=== PATIENT | male | born 1945 | race Caucasian/White ===

== ENCOUNTER → 2018-02-22 09:31 | Outpatient (CLI) | payer MEDICARE, OTHER, SELFPAY ==
--- NOTE | 2018-02-22 | DI.US.S_ITS ---
PROCEDURE: US ABDOMEN LIMITED INDICATIONS: POSSIBLE INGUINAL HERNIA TECHNIQUE: Real-time focused scanning was performed of the inguinal region, with image documentation. COMPARISON: None. FINDINGS: There is no sonographically visible mass, cyst or hernia in the right inguinal region. IMPRESSION: Negative right inguinal ultrasound Dictated by: Rajinder Hooker M.D. on 02/22/2018 at 10:00 Approved by: Rajinder Hooker M.D. on 02/22/2018 at 10:01
== END ==
PROVIDERS: PCP Internal Medicine; Visit Provider Urology
DX: K40.90 Unilateral inguinal hernia, without obstruction or gangrene, not specified as recurrent (principal)
CPT/HCPCS: 76705

== ENCOUNTER → 2018-03-06 10:43 | Outpatient (CLI) | payer MEDICARE, OTHER, SELFPAY ==
[2018-03-08 12:22] LABS: PSA Free % 26 % (calc) (> 25); PSA, Total 3.9 ng/mL (< 4.1)
== END ==
PROVIDERS: PCP Internal Medicine; Visit Provider Internal Medicine
DX: R97.20 Elevated prostate specific antigen [PSA] (principal)
CPT/HCPCS: 36415; 84153; 84154

== ENCOUNTER → 2018-05-02 14:42 | Outpatient (CLI) | payer MEDICARE, OTHER, SELFPAY ==
[2018-05-02 15:13] LABS: INR 1.5 (0.9-1.3); Prothrombin Time 16.8 SECONDS (10.1-12.7)
== END ==
PROVIDERS: PCP Internal Medicine; Visit Provider Internal Medicine Hematology
DX: R79.1 Abnormal coagulation profile (principal)
CPT/HCPCS: 36415; 85610

== ENCOUNTER → 2020-03-18 15:40 | Outpatient (ROUT) | payer MEDICARE, OTHER, SELFPAY ==
[2020-03-18 16:10] LABS: Aspartate Aminotransferase 29 IU/L (17-59); Blood Urea Nitrogen 21 mg/dL (9-20); Calcium 9.2 mg/dL (8.4-10.2); Carbon Dioxide 31 mmol/L (22-32); Chloride 106 mmol/L (98-107); Estimated Glomerular Filt Rate > 60.0 mL/min (>60); Glucose 204 mg/dL (80-110); HEMOLYSIS < 15 (0-50); Potassium 4.3 mmol/L (3.4-5.1); Sodium 142 mmol/L (137-145)
== END ==
PROVIDERS: PCP Internal Medicine; Visit Provider Internal Medicine
DX: I10 Essential (primary) hypertension (principal); E78.2 Mixed hyperlipidemia; N40.0 Benign prostatic hyperplasia without lower urinary tract symptoms
CPT/HCPCS: 80048; 84153; 84450

== ENCOUNTER → 2020-03-23 11:38 | Outpatient (CLI) | payer MEDICARE, OTHER, SELFPAY ==
[2020-03-23 12:45] LABS: Cholesterol 106 mg/dL (140-199); HDL Cholesterol 47 mg/dL (40-60); LDL Cholesterol Calculated 51 mg/dL (<100); Triglycerides 41 mg/dL (35-150)
== END ==
PROVIDERS: PCP Internal Medicine; Referring Provider Internal Medicine; Visit Provider Internal Medicine
DX: E78.2 Mixed hyperlipidemia (principal)
CPT/HCPCS: 36415; 80061

== ENCOUNTER → 2020-07-24 16:15 | Outpatient (CLI) | payer MEDICARE, OTHER, SELFPAY ==
[2020-07-24] MEDS: COVID-19 VACC #1, MRNA(MOD) 100 MCG/0.5 ML VIAL IM (16:23)
== END ==
PROVIDERS: PCP Internal Medicine; Visit Provider Internal Medicine
DX: Z23 Encounter for immunization (principal)
CPT/HCPCS: 0011A; 91301

== ENCOUNTER → 2020-08-21 16:06 | Outpatient (CLI) | payer MEDICARE, OTHER, SELFPAY ==
[2020-08-21] MEDS: COVID-19 VACC #2, MRNA(MOD) 100 MCG/0.5 ML VIAL IM (16:17)
== END ==
PROVIDERS: PCP Internal Medicine; Visit Provider Internal Medicine
DX: Z23 Encounter for immunization (principal)
CPT/HCPCS: 0012A; 91301

== ENCOUNTER → 2021-01-27 14:42 | Outpatient (CLI) | payer MEDICARE, OTHER, SELFPAY ==
[2021-01-27 15:24] LABS: Mean Corpuscular HGB Conc 33.3 % (30-36); Mean Corpuscular Hemoglobin 31.3 PG (26-34); Mean Corpuscular Volume 94.2 fL (80-100); Platelet Count 142 X10^3/uL (150-400); Red Blood Cell Count 4.78 X10^6/uL (4.5-5.9); Red Cell Distribution Width 12.7 % (11.6-14.8); White Blood Cell Count 7.4 X10^3/uL (4.5-11.0)
[2021-01-27 16:05] LABS: Alanine Aminotransferase 29 IU/L (<50); Albumin 3.9 g/dL (3.5-5.0); Albumin Globulin Ratio 1.3 (1.0-2.8); Alkaline Phosphatase 81 U/L (38-126); Aspartate Aminotransferase 33 IU/L (17-59); BUN Creatinine Ratio 24.6 (6-22); Bilirubin Total 0.6 mg/dL (0.2-1.3); Blood Urea Nitrogen 17 mg/dL (9-20); Calcium 9.2 mg/dL (8.4-10.2); Carbon Dioxide 25 mmol/L (22-32); Chloride 106 mmol/L (98-107); Estimated Glomerular Filt Rate > 60.0 mL/min (>60); Glucose 85 mg/dL (80-110); HEMOLYSIS < 15 (0-50); Sodium 139 mmol/L (137-145); Total Protein 6.9 g/dL (6.3-8.2)
[2021-01-27 16:45] LABS: TSH w/ Reflex to FT4 1.79 uIU/mL (0.47-4.68)
== END ==
PROVIDERS: PCP Internal Medicine; Referring Provider Internal Medicine; Visit Provider Internal Medicine
DX: R53.83 Other fatigue (principal)
CPT/HCPCS: 36415; 80053; 84443; 85027

== ENCOUNTER 2021-03-26 09:30 | Outpatient (RCR) | payer MEDICARE, OTHER, SELFPAY ==
[2021-03-26 09:45] VITALS: BP 152/60; BP 158/60; BP 162/78
--- NOTE | 2021-03-26 17:30 | PT.OIE ---
Current Diagnoses Benign paroxysmal vertigo, unspecified ear (03/26/21) Orthostatic hypotension (03/26/21) Dizziness and giddiness (03/26/21) Visit Care Team Role Provider Type Ganga Joseph MD Attending Provider Physician Family Provider Primary Care Provider Referring Provider Specialty: Internal Medicine Address: [address] [place] [address], [id number] Email: [email or web address] Therapy Initial Evaluation PT-OP-A Visit Information Start: 03/26/21 16:43 Freq: Status: Active Protocol: Document 03/26/21 09:45 DCW (Rec: 03/26/21 16:43 DCW [id number]) Out-Patient Physical Therapy Visit Information Visit Information Visit Type Initial Evaluation Visit Start Time 09:45 Visit Stop Time 10:20 Total Visit Minutes 35 Visit Number 1 Number of COUNTER TOP MAKER Visits 0 Evaluation Information Evaluation Date 03/26/21 PT-OP-B Current Condition Start: 03/26/21 16:43 Freq: Status: Active Protocol: Document 03/26/21 09:45 DCW (Rec: 03/26/21 17:22 DCW [id number]) Current Condition History of Current Condition Onset Date A few years Current Complaints Lightheadedness/Spinning upon standing History of Current Condition Pt was recently seen at a free public balance screening by this therapist. Pt did well with his balance, however had some reports of symptoms that sounded vertiginous in nature, and after discussion with therapist, pt became interesting in pursuing further diagnosis, and received a referral from his PCP. Pt reports in general, he has no problems when up walking, but gets dizzy when getting up at night, resulting in occasional retro fall back into bed. Pt admits he has difficulty in stairs and walking on naihd surfaces, however notes that there are no symptoms, it is more that he just does not feel comfortable. PT-OP-C Subjective Start: 03/26/21 16:43 Freq: Status: Active Protocol: Document 03/26/21 09:45 DCW (Rec: 03/26/21 17:22 DCW [id number]) OP-PT Subjective Patient Comments Patient Comments I keep an eye on my blood pressure, and it is normally pretty good, but I also just check it occasionally when sitting. Patient Questionnaires ABC- Activity Specific Balance Confidence Scale ABC Score 84.37% Dizziness Handicap Inventory DHI Score 18% PT-OP-H Neuro Start: 03/26/21 16:43 Freq: Status: Active Protocol: Document 03/26/21 09:45 DCW (Rec: 03/26/21 17:22 DCW [id number]) Vital Signs Blood Pressure Standing Blood Pressure (90/60-120/80 mmHg) 152/60 H Blood Pressure Source Manual Cuff,Right Upper Extremity Sitting Blood Pressure (90/60-120/80 mmHg) 158/60 H Blood Pressure Source Automatic Cuff,Manual Cuff, Right Upper Extremity Supine Blood Pressure (90/60-120/80 mmHg) 162/78 H Blood Pressure Source Manual Cuff,Right Upper Extremity PT-OP-O Vestibular Start: 03/26/21 16:43 Freq: Status: Active Protocol: Document 03/26/21 09:45 DCW (Rec: 03/26/21 17:22 DCW [id number]) Vestibular Assessment Screening Tests Vestibular Artery Screen Negative Auditory Tests Mcdaniels Test Within normal limits Rinne Test Negative Air Conduction Results Equal Visual Testing Smooth Pursuits Horizontal WNL - c/o uncomfortable Smooth Pursuits Vertical WNL Saccades Horizontal WNL Saccades Vertical WNL Gaze Evoked Nystagmus With Fixation Negative Gaze Evoked Nystagmus Without Fixation Negative Heave Test Positive Bilateral Thrust Head Positive Bilateral Positional Testing [place]-Hallpike Negative Left,Negative Right Rolling Test Negative Left,Negative Right PT-OP-T Assessment and Plan Start: 03/26/21 16:43 Freq: Status: Active Protocol: Document 03/26/21 09:45 DCW (Rec: 03/26/21 17:30 DCW [id number]) Physical Therapy Assessment Rehab Potential Rehabilitation Potential Fair Evaluation Complexity Number of Personal Factors/Comorbidities 1-2 Number of Body Systems Impaired 1-2 Clinical Presentation at Evaluation Stable Impairments Impairments Balance Assessment Summary Assessment Pt's vestibular examination is entirely negative at this time. Upon further discussion, pt's symptoms are really only present upon first standing, especially in the morning after lying in bed all night. Orthostatic BP measurements today did show a drop in diastolic blood pressure of 18 mmHg when moving from supine to sitting, which is larger than the typical 10 mmHg cutoff for diagnosis of Orthostatic Hypotension. Pt's BP was elevated today, and pt noted that his typical systolic reading is ~120-103. Noted he had some coffee before coming in today, and he does have a tendency to get white coat syndrome occasionally, so BP readings may be off compared to his usual. Pt reported he would like to keep a better eye on his BPs at home with his own automatic BP cuff, and, if there continues to be significant drops in BP, would like to discuss with his hospice volunteer at his upcoming appointment. Pt is unlikely to benefit from any further vestibular rehab at this time, as there was no indication of vestibular dysfunction. Pt will be discharged from skilled therapy, and will follow up with hospice volunteer as planned. Physical Therapy Plan Frequency and Duration Frequency of Treatment 1x/Week Duration of Treatment 1 day Plan of Care Start Date 03/26/21 Plan of Care End Date 03/27/21 Therapeutic Interventions Therapeutic Interventions Vestibular Rehabilitation Discharge Physical Therapy Discharge Reasons No Longer Attending PT Next Visit Focus/Plan Next Note Type Discharge Summary
--- NOTE | 2021-03-26 17:31 | PT.OPPOC ---
Physical, Occupational & Speech Therapy At [facility] Current Diagnoses Benign paroxysmal vertigo, unspecified ear (03/26/21) Orthostatic hypotension (03/26/21) Dizziness and giddiness (03/26/21) Visit Care Team Role Provider Type Ganga Joseph MD Attending Provider Physician Family Provider Primary Care Provider Referring Provider Specialty: Internal Medicine Address: [address] [place] [address], [facility] Email: [email or web address] Of Care PT-OP-T Assessment and Plan Start: 03/26/21 16:43 Freq: Status: Active Protocol: Document 03/26/21 09:45 DCW (Rec: 03/26/21 17:30 DCW [id number]) Physical Therapy Assessment Rehab Potential Rehabilitation Potential Fair Evaluation Complexity Number of Personal Factors/Comorbidities 1-2 Number of Body Systems Impaired 1-2 Clinical Presentation at Evaluation Stable Impairments Impairments Balance Assessment Summary Assessment Pt's vestibular examination is entirely negative at this time. Upon further discussion, pt's symptoms are really only present upon first standing, especially in the morning after lying in bed all night. Orthostatic BP measurements today did show a drop in diastolic blood pressure of 18 mmHg when moving from supine to sitting, which is larger than the typical 10 mmHg cutoff for diagnosis of Orthostatic Hypotension. Pt's BP was elevated today, and pt noted that his typical systolic reading is ~120-103. Noted he had some coffee before coming in today, and he does have a tendency to get white coat syndrome occasionally, so BP readings may be off compared to his usual. Pt reported he would like to keep a better eye on his BPs at home with his own automatic BP cuff, and, if there continues to be significant drops in BP, would like to discuss with his broadcast field supervisor at his upcoming appointment. Pt is unlikely to benefit from any further vestibular rehab at this time, as there was no indication of vestibular dysfunction. Pt will be discharged from skilled therapy, and will follow up with broadcast field supervisor as planned. Physical Therapy Plan Frequency and Duration Frequency of Treatment 1x/Week Duration of Treatment 1 day Plan of Care Start Date 03/26/21 Plan of Care End Date 03/27/21 Therapeutic Interventions Therapeutic Interventions Vestibular Rehabilitation Discharge Physical Therapy Discharge Reasons No Longer Attending PT Next Visit Focus/Plan Next Note Type Discharge Summary Plan of Care Dates Plan of Care Start Date 03/26/21 Plan of Care End Date 03/27/21 Electronically Signed by: Jose Puentes, PT 03/26/21 4543 Please Sign and Return: I have reviewed this Plan of Care and certify that the skilled therapy services above are required to meet the patient?s needs. Physician Signature Date Printed Name and Credentials Clinical Instructor Signature Printed Name and Credentials
--- NOTE | 2021-03-26 17:33 | PT.OPDS ---
Current Diagnoses Benign paroxysmal vertigo, unspecified ear (03/26/21) Orthostatic hypotension (03/26/21) Dizziness and giddiness (03/26/21) Visit Care Team Role Provider Type Ganga Joseph MD Attending Provider Physician Family Provider Primary Care Provider Referring Provider Specialty: Internal Medicine Address: [address] [place] [id number] Email: [email or web address] Visit Number Visit Number 1 Discharge Summary PT-OP-B Current Condition Start: 03/26/21 16:43 Freq: Status: Active Protocol: Document 03/26/21 09:45 DCW (Rec: 03/26/21 17:22 DCW [id number]) Current Condition History of Current Condition Onset Date A few years Current Complaints Lightheadedness/Spinning upon standing History of Current Condition Pt was recently seen at a free public balance screening by this therapist. Pt did well with his balance, however had some reports of symptoms that sounded vertiginous in nature, and after discussion with therapist, pt became interesting in pursuing further diagnosis, and received a referral from his PCP. Pt reports in general, he has no problems when up walking, but gets dizzy when getting up at night, resulting in occasional retro fall back into bed. Pt admits he has difficulty in stairs and walking on nahid surfaces, however notes that there are no symptoms, it is more that he just does not feel comfortable. PT-OP-C Subjective Start: 03/26/21 16:43 Freq: Status: Active Protocol: Document 03/26/21 09:45 DCW (Rec: 03/26/21 17:22 DCW [id number]) OP-PT Subjective Patient Comments Patient Comments I keep an eye on my blood pressure, and it is normally pretty good, but I also just check it occasionally when sitting. Patient Questionnaires ABC- Activity Specific Balance Confidence Scale ABC Score 84.37% Dizziness Handicap Inventory DHI Score 18% PT-OP-H Neuro Start: 03/26/21 16:43 Freq: Status: Active Protocol: Document 03/26/21 09:45 DCW (Rec: 03/26/21 17:22 DCW [id number]) Vital Signs Blood Pressure Standing Blood Pressure (90/60-120/80 mmHg) 152/60 H Blood Pressure Source Manual Cuff,Right Upper Extremity Sitting Blood Pressure (90/60-120/80 mmHg) 158/60 H Blood Pressure Source Automatic Cuff,Manual Cuff, Right Upper Extremity Supine Blood Pressure (90/60-120/80 mmHg) 162/78 H Blood Pressure Source Manual Cuff,Right Upper Extremity PT-OP-O Vestibular Start: 03/26/21 16:43 Freq: Status: Active Protocol: Document 03/26/21 09:45 DCW (Rec: 03/26/21 17:22 DCW [id number]) Vestibular Assessment Screening Tests Vestibular Artery Screen Negative Auditory Tests Mcdaniels Test Within normal limits Rinne Test Negative Air Conduction Results Equal Visual Testing Smooth Pursuits Horizontal WNL - c/o uncomfortable Smooth Pursuits Vertical WNL Saccades Horizontal WNL Saccades Vertical WNL Gaze Evoked Nystagmus With Fixation Negative Gaze Evoked Nystagmus Without Fixation Negative Heave Test Positive Bilateral Thrust Head Positive Bilateral Positional Testing [place]-Hallpike Negative Left,Negative Right Rolling Test Negative Left,Negative Right PT-OP-T Assessment and Plan Start: 03/26/21 16:43 Freq: Status: Active Protocol: Document 03/26/21 09:45 DCW (Rec: 03/26/21 17:30 DCW [id number]) Physical Therapy Assessment Rehab Potential Rehabilitation Potential Fair Evaluation Complexity Number of Personal Factors/Comorbidities 1-2 Number of Body Systems Impaired 1-2 Clinical Presentation at Evaluation Stable Impairments Impairments Balance Assessment Summary Assessment Pt's vestibular examination is entirely negative at this time. Upon further discussion, pt's symptoms are really only present upon first standing, especially in the morning after lying in bed all night. Orthostatic BP measurements today did show a drop in diastolic blood pressure of 18 mmHg when moving from supine to sitting, which is larger than the typical 10 mmHg cutoff for diagnosis of Orthostatic Hypotension. Pt's BP was elevated today, and pt noted that his typical systolic reading is ~120-103. Noted he had some coffee before coming in today, and he does have a tendency to get white coat syndrome occasionally, so BP readings may be off compared to his usual. Pt reported he would like to keep a better eye on his BPs at home with his own automatic BP cuff, and, if there continues to be significant drops in BP, would like to discuss with his container maker at his upcoming appointment. Pt is unlikely to benefit from any further vestibular rehab at this time, as there was no indication of vestibular dysfunction. Pt will be discharged from skilled therapy, and will follow up with container maker as planned. Physical Therapy Plan Frequency and Duration Frequency of Treatment 1x/Week Duration of Treatment 1 day Plan of Care Start Date 03/26/21 Plan of Care End Date 03/27/21 Therapeutic Interventions Therapeutic Interventions Vestibular Rehabilitation Discharge Physical Therapy Discharge Reasons No Longer Attending PT Next Visit Focus/Plan Next Note Type Discharge Summary
== END 2021-03-29 07:53 | disposition home or self-care (01) ==
LOC: PHYS 09:30
PROVIDERS: Family Provider Internal Medicine; PCP Internal Medicine; Referring Provider Internal Medicine; Visit Provider Internal Medicine
DX: H81.10 Benign paroxysmal vertigo, unspecified ear (principal); I95.1 Orthostatic hypotension
CPT/HCPCS: 97161

== ENCOUNTER → 2021-04-25 12:15 | Outpatient (CLI) | payer MEDICARE, OTHER, SELFPAY ==
--- NOTE | 2021-04-25 12:16 | DI.RAD.S_ITS ---
PROCEDURE: XR TIBIA FUBULA RT 2V INDICATIONS: pain with ambulation TECHNIQUE: 2 views of the tibia and fibula were acquired. COMPARISON: [facility], CR, XR FOOT RT MIN 3V, 04/25/2021, 12:12. FINDINGS: Bones: No fractures or dislocations. No suspicious bony lesions. The talar dome demonstrates no grey abnormality. Age-appropriate bony degenerative changes are seen. Soft tissues: No suspicious soft tissue calcifications or masses. Distal arterial calcification is noted. IMPRESSION: Unremarkable study for age, with degenerative changes noted. Dictated by: Shawn Baptiste M.D. on 04/25/2021 at 11:33 Approved by: Shawn Baptiste M.D. on 04/25/2021 at 11:33
--- NOTE | 2021-04-25 12:16 | DI.RAD.S_ITS ---
PROCEDURE: XR FOOT RT MIN 3V INDICATIONS: pain with ambulation TECHNIQUE: 3 views of the foot were acquired. COMPARISON: [facility], CR, XR TIBIA FIBULA RT 2V, 04/25/2021, 12:12. [facility], CR, FOOT 3V LEFT, 01/29/2015, 12:56. FINDINGS: Bones: No fractures or dislocations. No suspicious bony lesions. Generalized degenerative changes are seen, which are worst involving the 1st ray. There is focal moderate to severe degenerative change of the 1st metatarsophalangeal joint. 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 Soft tissues: No tibiotalar joint effusion. Achilles tendon appears normal. Distal arterial calcification can be seen. IMPRESSION: Generalized degenerative changes are seen, which are worst involving the 1st ray. Dictated by: Shawn Baptiste M.D. on 04/25/2021 at 11:31 Approved by: Shawn Baptiste M.D. on 04/25/2021 at 11:32
== END ==
PROVIDERS: Family Provider Internal Medicine; PCP Internal Medicine; Referring Provider Nurse Practitioner Family; Visit Provider Nurse Practitioner Family
DX: M79.671 Pain in right foot (principal); R26.2 Difficulty in walking, not elsewhere classified
CPT/HCPCS: 73590; 73630

== ENCOUNTER → 2021-05-18 13:05 | Outpatient (CLI) | payer MEDICARE, OTHER, SELFPAY ==
[2021-05-18 14:15] LABS: Blood Urea Nitrogen 17 mg/dL (9-20); Calcium 9.4 mg/dL (8.4-10.2); Carbon Dioxide 27 mmol/L (22-32); Chloride 104 mmol/L (98-107); Estimated Glomerular Filt Rate > 60.0 mL/min (>60); Glucose 117 mg/dL (80-110); HEMOLYSIS < 15 (0-50); Potassium 4.3 mmol/L (3.4-5.1); Sodium 140 mmol/L (137-145)
== END ==
PROVIDERS: Family Provider Internal Medicine; PCP Internal Medicine; Referring Provider Internal Medicine Cardiovascular Disease; Visit Provider Internal Medicine Cardiovascular Disease
DX: I10 Essential (primary) hypertension (principal)
CPT/HCPCS: 36415; 80048

== ENCOUNTER → 2021-11-03 08:12 | Outpatient (CLI) | payer MEDICARE, OTHER, SELFPAY ==
[2021-11-03 09:16] LABS: Hemoglobin A1C% w Est Avg Glu 6.7 % (4.0-6.0)
[2021-11-03 09:58] LABS: Alanine Aminotransferase 28 IU/L (<50); Albumin 4.1 g/dL (3.5-5.0); Albumin Globulin Ratio 1.6 (1.0-2.8); Alkaline Phosphatase 72 U/L (38-126); Aspartate Aminotransferase 29 IU/L (17-59); BUN Creatinine Ratio 18.6 (6-22); Bilirubin Total 1.1 mg/dL (0.2-1.3); Blood Urea Nitrogen 16 mg/dL (9-20); Calcium 9.2 mg/dL (8.4-10.2); Carbon Dioxide 28 mmol/L (22-32); Chloride 106 mmol/L (98-107); Cholesterol 118 mg/dL (140-199); Estimated Glomerular Filt Rate > 60 mL/min (>60); Globulin 2.6 g/dL (1.7-4.1); Glucose 130 mg/dL (80-110); HDL Cholesterol 47 mg/dL (40-60); HEMOLYSIS < 15 (0-50); LDL Cholesterol Calculated 52 mg/dL (<100); Potassium 4.2 mmol/L (3.4-5.1); Sodium 142 mmol/L (137-145); Total Protein 6.7 g/dL (6.3-8.2); Triglycerides 93 mg/dL (35-150)
== END ==
PROVIDERS: Family Provider Internal Medicine; PCP Internal Medicine; Referring Provider Internal Medicine; Visit Provider Internal Medicine
DX: E11.9 Type 2 diabetes mellitus without complications (principal); E78.2 Mixed hyperlipidemia; I10 Essential (primary) hypertension; I25.10 Atherosclerotic heart disease of native coronary artery without angina pectoris
CPT/HCPCS: 36415; 80053; 80061; 83036

== ENCOUNTER 2022-03-03 13:45 | Outpatient (RCR) | payer MEDICARE, OTHER, SELFPAY ==
--- NOTE | 2022-01-25 21:56 | PT.OIE ---
Current Diagnoses Low back pain, unspecified (01/25/22) Left lower quadrant pain (01/25/22) Past Medical History (Last Updated 01/20/22 @ 13:34 by Juanita Crandall PA-C) Acne Acute lumbar back pain BPH w urinary obs/LUTS Chronic back pain Colon polyps Coronary artery disease Depression Diabetes mellitus Factor V Leiden Fractures GERD (gastroesophageal reflux disease) Hearing loss Hemorrhoid Hypertension Left groin pain Migraines Mixed hyperlipidemia Psoriasis PTSD (post-traumatic stress disorder) Vision disorder Past Surgical History (Last Updated 06/20/21 @ 22:13 by Perla Parks) Anesthesia History of hernia repair (~2019) History of surgery (~2012) History of thyroplasty (~2013) Varicocele (~1970) Visit Care Team Role Provider Type Juanita Crandall PA-C Referring Provider Physician 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 Specialty: EM Address: [address] [place] [address] Email: Teo Ayon MD Attending Provider Physician Family Provider Primary Care Provider Specialty: Internal Medicine Address: [address] [place] [address], [address], [place], [address] Email: [email or web address] Physical Therapy Initial Evaluation PT-OP-A Visit Information Start: 01/25/22 07:36 Freq: Status: Active Protocol: Document 01/25/22 08:16 AMB (Rec: 01/25/22 09:05 AMB [id number]) Out-Patient Physical Therapy Visit Information Visit Information Visit Type Initial Evaluation Visit Start Time 08:15 Visit Stop Time 09:00 Total Visit Minutes 45 Visit Number 1 PT-OP-B Current Condition Start: 01/25/22 07:36 Freq: Status: Active Protocol: Document 01/25/22 08:16 AMB (Rec: 01/25/22 09:05 AMB [id number]) Current Condition History of Current Condition Onset Date About a month ago Current Complaints L low back pain History of Current Condition Back issues for decades, but acute pain started a month ago, no specific incident, but wondering if yardwork caused it. Was having L groin pain that is better now. Does have a history of bilateral hernia surgery. Doing yardwork, but has given that up at this point. Sudden braking in the car hurts the back, rolling over in bed, moving from sit to stand. Walking is not as painful. In his 40s was diagnosed with DDD and was running 35 miles throughout the week. Previous to recent injury was able to stand 10-15 minutes without back pain, now micha to stand 2-3 minutes. Treatment Goals Patient/Caregiver Goals Reduce pain, be able to return to yardwork on uneven yard Personal Factors Other Personal Factors That May Effect DMII, HTN, depression Therapy/Recovery PT-OP-C Subjective Start: 01/25/22 07:36 Freq: Status: Active Protocol: Document 01/25/22 08:15 AMB (Rec: 01/25/22 16:14 AMB [id number]) Patient Questionnaires Oswestry Low Back Index Oswestry Score 46 Oswestry Impairment 40 to 59% Impaired (Score 40- 59) OP-PT Pain Assessment Comments Pain Comments 6/10 left low back pain, previously left groinsharp PT-OP-F Manual Assessment Start: 01/25/22 07:36 Freq: Status: Active Protocol: Document 01/25/22 08:15 AMB (Rec: 01/27/22 21:39 AMB [id number]-) Manual Assessments Soft Tissue Assessment Soft Tissue Mobility Assessment Tightness at left QL> R . T Joint Mobility Assessment Joint Mobility Assessment Stiffness with PAs especially L4L5 PT-OP-G Mobility & Gait Start: 01/25/22 07:36 Freq: Status: Active Protocol: Document 01/25/22 08:15 AMB (Rec: 01/27/22 21:39 AMB [id number]-) OP Gait Assessment Comments Gait Comments Reduced trunk rotation, flat lumbar spine PT-OP-K Range of Motion Start: 01/25/22 07:36 Freq: Status: Active Protocol: Document 01/25/22 08:15 AMB (Rec: 01/25/22 16:18 AMB [id number]) Lumbar Spine Range of Motion Lumbar Spine Active Degrees Testing Position Standing Flexion 40 Extension 10 Lateral Flexion Left 10 Lateral Flexion Right 10 ROM Limitations Pain PT-OP-L Special Tests Start: 01/25/22 07:36 Freq: Status: Active Protocol: Document 01/25/22 08:15 AMB (Rec: 07/28/22 21:39 AMB [id number]) Special Tests Lumbar Spine Special Tests Slump Test Results - PT-OP-M Strength Start: 01/25/22 07:36 Freq: Status: Active Protocol: Document 01/25/22 08:15 AMB (Rec: 01/27/22 21:39 AMB [id number]) Hip Strength Hip Manual Muscle Testing Right Flexion (L2) 4+ Good+ Extension (S1) 4 Good Abduction 4 Good Left Flexion (L2) 4- Good- Extension (S1) 4 Good Abduction 4 Good PT-OP-Q Treatments Start: 01/25/22 07:36 Freq: Status: Active Protocol: Document 01/25/22 08:15 AMB (Rec: 01/25/22 16:20 AMB [id number]) Therapeutic Exercises Supine Exercises bridge Reps/Minutes 2x10 Comments cued slow movement Prone Exercises pronepress up Comments increased pain Sitting Exercises seated lumbar flexion Reps/Minutes 30x2 Other Exercises brad pose Reps/Minutes 30x2 Comments wiht sidebend PT-OP-T Assessment and Plan Start: 01/25/22 07:36 Freq: Status: Active Protocol: Document 01/25/22 08:15 AMB (Rec: 01/27/22 21:56 AMB [id number]) Physical Therapy Assessment Rehab Potential Rehabilitation Potential Good Evaluation Complexity Number of Personal Factors/Comorbidities 1-2 Number of Body Systems Impaired 4 or More Clinical Presentation at Evaluation Stable Impairments Impairments Functional Activities,Pain, Posture,ROM,Strength Goals Positional tolerance [facility] Goal (LTG) Dylan will stand for 10 minutes without an increase in his baseline pain. LTG Duration 8 weeks Two Impairment Transfers Short Term Goal (STG) Dylan will perform all bed mobility without an increase in back pain. STG Duration 4 weeks Account Retention Representative Goal (LTG) Dylan will move from sit to stand without back pain. LTG Duration 8 weeks One Impairment ROM Short Term Goal (STG) Dylan will increase his lumbar extension range to at least 15 degrees without pain. STG Duration 4 weeks Assessment Summary Assessment Dylan attends physical therapy with an acute exacerbation of chronic back pain, worst with transfers ( bed mobility, sit to stand, and especially extended standing). Extension increased his pain while flexion was mildly relieving. He also notes L groin pain but this was not reproduced with palpation today, he thinks this could be separate as it has been improving while the back has not really been doing so. He will benefit from PT to improve his range of motion, strength, and body mechanics so that he can stand and move with less back pain. Physical Therapy Plan Frequency and Duration Frequency of Treatment 2x/Week Duration of Treatment 8 weeks Plan of Care Start Date 01/25/22 Plan of Care End Date 04/05/22 Therapeutic Interventions Therapeutic Interventions Gait Training,Home Exercise Program,Manual Therapy,Self- Care/Home Management, Therapeutic Activities, Therapeutic Exercises Modalities Cold Pack/Ice Massage,Electric Stimulation,Hot Packs Next Visit Focus/Plan Next Note Type Treatment Note Next Visit Plan Core stabilization with flexion bias, review HEP:
--- NOTE | 2022-01-25 21:57 | PT.OPPOC ---
Physical, Occupational & Speech Therapy At [facility] Current Diagnoses Low back pain, unspecified (01/25/22) Left lower quadrant pain (01/25/22) Visit Care Team Role Provider Type Juanita Crandall PA-C Referring Provider Physician Medical Billing Associate Specialty: EM Address: [address] [place] [address], [id number] Email: Teo Ayon MD Attending Provider Physician Family Provider Primary Care Provider Specialty: Internal Medicine Address: [address] [place] [address], [address], [place], [address] Email: [email or web address] Plan Of Care PT-OP-T Assessment and Plan Start: 01/25/22 07:36 Freq: Status: Active Protocol: Document 01/25/22 08:15 AMB (Rec: 01/27/22 21:56 AMB [id number]) Physical Therapy Assessment Rehab Potential Rehabilitation Potential Good Evaluation Complexity Number of Personal Factors/Comorbidities 1-2 Number of Body Systems Impaired 4 or More Clinical Presentation at Evaluation Stable Impairments Impairments Functional Activities,Pain, Posture,ROM,Strength Goals Positional tolerance Cotton Presser Goal (LTG) Dylan will stand for 10 minutes without an increase in his baseline pain. LTG Duration 8 weeks Two Impairment Transfers Short Term Goal (STG) Dylan will perform all bed mobility without an increase in back pain. STG Duration 4 weeks Prison Goal (LTG) Dylan will move from sit to stand without back pain. LTG Duration 8 weeks One Impairment ROM Short Term Goal (STG) Dylan will increase his lumbar extension range to at least 15 degrees without pain. STG Duration 4 weeks Assessment Summary Assessment Dylan attends physical therapy with an acute exacerbation of chronic back pain, worst with transfers ( bed mobility, sit to stand, and especially extended standing). Extension increased his pain while flexion was mildly relieving. He also notes L groin pain but this was not reproduced with palpation today, he thinks this could be separate as it has been improving while the back has not really been doing so. He will benefit from PT to improve his range of motion, strength, and body mechanics so that he can stand and move with less back pain. Physical Therapy Plan Frequency and Duration Frequency of Treatment 2x/Week Duration of Treatment 8 weeks Plan of Care Start Date 01/25/22 Plan of Care End Date 04/05/22 Therapeutic Interventions Therapeutic Interventions Gait Training,Home Exercise Program,Manual Therapy,Self- Care/Home Management, Therapeutic Activities, Therapeutic Exercises Modalities Cold Pack/Ice Massage,Electric Stimulation,Hot Packs Next Visit Focus/Plan Next Note Type Treatment Note Next Visit Plan Core stabilization with flexion bias, review HEP: Plan of Care Dates Plan of Care Start Date 01/25/22 Plan of Care End Date 04/05/22 Electronically Signed by: Adriana Gar, PT 01/27/22 [id number] If you are in agreement with this Plan of Care, please return a signed and dated copy. I have reviewed this Plan of Care and certify that the skilled therapy services above are required to meet the patient?s needs. Physician Signature Date Printed Name and Credentials Clinical Instructor Signature Printed Name and Credentials
--- NOTE | 2022-02-01 11:48 | PT.OTN ---
Current Diagnoses Low back pain, unspecified (02/01/22) Left lower quadrant pain (02/01/22) Physical Therapy Treatment Note PT-OP-A Visit Information Start: 01/25/22 07:36 Freq: Status: Active Protocol: Document 02/01/22 08:59 AMB (Rec: 02/01/22 09:48 AMB [id number]) Out-Patient Physical Therapy Visit Information Visit Information Visit Type Treatment Note Visit Start Time 09:00 Visit Stop Time 09:45 Total Visit Minutes 45 Visit Number 2 PT-OP-B Current Condition Start: 01/25/22 07:36 Freq: Status: Active Protocol: Document 01/25/22 08:16 AMB (Rec: 01/25/22 09:05 AMB [id number]) Current Condition History of Current Condition Onset Date About a month ago Current Complaints L low back pain History of Current Condition Back issues for decades, but acue pain started a month ago, no specific incident, but wondering if yardwork caused it. Was having L groin pain that is better now. Does have a history of bilateral hernia surgery. Doing yardwork, but has given that up at this point. Sudden braking in the car hurts the back, rolling over in bed, moving from sit to stand. Walking is not as painful. In his 40s was diagnosed with DDD and was running 35 miles throughout the week. Previous to recent injury was able to stand 10-15 minutes without back pain, now micha to stand 2-3 minutes. Treatment Goals Patient/Caregiver Goals Reduce pain, be able to return to yardwork on uneven yard Personal Factors Other Personal Factors That May Effect DMII, HTN, depression Therapy/Recovery PT-OP-C Subjective Start: 01/25/22 07:36 Freq: Status: Active Protocol: Document 02/01/22 08:59 AMB (Rec: 02/01/22 09:48 AMB [id number]) OP-PT Subjective Patient Comments Patient Comments Brad pose is helpful, others not as much, twisting and flexing to put on shoes, put on pants continues to be painful, groin is feeling better. Has been using TENS unit and finds that helpful. Did do yardwork yesterday and was painful - 4 buckets PT-OP-F Manual Assessment Start: 01/25/22 07:36 Freq: Status: Active Protocol: Document 01/25/22 08:15 AMB (Rec: 01/27/22 21:39 AMB [id number]-) Manual Assessments Soft Tissue Assessment Soft Tissue Mobility Assessment Tightness at left QL> R . T Joint Mobility Assessment Joint Mobility Assessment Stiffness with PAs especially L4L5 PT-OP-G Mobility & Gait Start: 01/25/22 07:36 Freq: Status: Active Protocol: Document 01/25/22 08:15 AMB (Rec: 01/27/22 21:39 AMB [id number]-) OP Gait Assessment Comments Gait Comments Reduced trunk rotation, flat lumbar spine PT-OP-K Range of Motion Start: 01/25/22 07:36 Freq: Status: Active Protocol: Document 01/25/22 08:15 AMB (Rec: 01/25/22 16:18 AMB [id number]) Lumbar Spine Range of Motion Lumbar Spine Active Degrees Testing Position Standing Flexion 40 Extension 10 Lateral Flexion Left 10 Lateral Flexion Right 10 ROM Limitations Pain PT-OP-L Special Tests Start: 01/25/22 07:36 Freq: Status: Active Protocol: Document 01/25/22 08:15 AMB (Rec: 01/27/22 21:39 AMB [id number]-) Special Tests Lumbar Spine Special Tests Slump Test Results - PT-OP-M Strength Start: 01/25/22 07:36 Freq: Status: Active Protocol: Document 01/25/22 08:15 AMB (Rec: 01/27/22 21:39 AMB [id number]-) Hip Strength Hip Manual Muscle Testing Right Flexion (L2) 4+ Good+ Extension (S1) 4 Good Abduction 4 Good Left Flexion (L2) 4- Good- Extension (S1) 4 Good Abduction 4 Good PT-OP-Q Treatments Start: 01/25/22 07:36 Freq: Status: Active Protocol: Document 02/01/22 11:40 AMB (Rec: 02/01/22 11:48 AMB [id number]) Therapeutic Exercises Supine Exercises SLR Reps/Minutes 10 Comments cued TA Sidelying Exercises open book Reps/Minutes 10 Other Exercises cat cow Reps/Minutes 10 Comments cued to avoid pain, small ROM thread the needle Side bilateral Reps/Minutes 10 ea Manual Therapy Treatment Soft Tissue Mobilization pin and stretch L QL Body Position Sidelying PT-OP-T Assessment and Plan Start: 01/25/22 07:36 Freq: Status: Active Protocol: Document 02/01/22 11:40 AMB (Rec: 02/01/22 11:48 AMB [id number]) Physical Therapy Assessment Goals Positional tolerance Signals Intelligence Superintendent Goal (LTG) Dylan will stand for 10 minutes without an increase in his baseline pain. LTG Duration 8 weeks Two Impairment Transfers Short Term Goal (STG) Dylan will perform all bed mobility without an increase in back pain. STG Duration 4 weeks Fpc Goal (LTG) Dylan will move from sit to stand without back pain. LTG Duration 8 weeks One Impairment ROM Short Term Goal (STG) Dylan will increase his lumbar extension range to at least 15 degrees without pain. STG Duration 4 weeks Assessment Summary Assessment Dylan had a hard time feeling any stretching of his low back, does continue to have pain with lumbar extension. Gave thread the needle as HEP. Physical Therapy Plan Next Visit Focus/Plan Next Note Type Treatment Note Next Visit Plan Core stabilization with flexion bias, review HEP: brad pose with lateral sidebend, thread the needle
--- NOTE | 2022-02-07 10:59 | PT.OTN ---
Current Diagnoses Low back pain, unspecified (02/07/22) Left lower quadrant pain (02/07/22) Physical Therapy Treatment Note PT-OP-A Visit Information Start: 01/25/22 07:36 Freq: Status: Active Protocol: Document 02/07/22 10:49 AMB (Rec: 02/07/22 10:59 AMB [id number]) Out-Patient Physical Therapy Visit Information Visit Information Visit Type Treatment Note Visit Start Time 09:00 Visit Stop Time 09:45 Total Visit Minutes 45 Visit Number 3 PT-OP-B Current Condition Start: 01/25/22 07:36 Freq: Status: Active Protocol: Document 01/25/22 08:16 AMB (Rec: 01/25/22 09:05 AMB [id number]) Current Condition History of Current Condition Onset Date About a month ago Current Complaints L low back pain History of Current Condition Back issues for decades, but acue pain started a month ago, no specific incident, but wondering if yardwork caused it. Was having L groin pain that is better now. Does have a history of bilateral hernia surgery. Doing yardwork, but has given that up at this point. Sudden braking in the car hurts the back, rolling over in bed, moving from sit to stand. Walking is not as painful. In his 40s was diagnosed with DDD and was running 35 miles throughout the week. Previous to recent injury was able to stand 10-15 minutes without back pain, now micha to stand 2-3 minutes. Treatment Goals Patient/Caregiver Goals Reduce pain, be able to return to yardwork on uneven yard Personal Factors Other Personal Factors That May Effect DMII, HTN, depression Therapy/Recovery PT-OP-C Subjective Start: 01/25/22 07:36 Freq: Status: Active Protocol: Document 02/07/22 10:49 AMB (Rec: 02/07/22 10:59 AMB [id number]) OP-PT Subjective Patient Comments Patient Comments Flared up back again in similar spot but a little different 3 days ago. PT-OP-F Manual Assessment Start: 01/25/22 07:36 Freq: Status: Active Protocol: Document 01/25/22 08:15 AMB (Rec: 01/27/22 21:39 AMB [id number]) Manual Assessments Soft Tissue Assessment Soft Tissue Mobility Assessment Tightness at left QL> R . T Joint Mobility Assessment Joint Mobility Assessment Stiffness with PAs especially L4L5 PT-OP-G Mobility & Gait Start: 01/25/22 07:36 Freq: Status: Active Protocol: Document 01/25/22 08:15 AMB (Rec: 01/27/22 21:39 AMB [id number]-) OP Gait Assessment Comments Gait Comments Reduced trunk rotation, flat lumbar spine PT-OP-K Range of Motion Start: 01/25/22 07:36 Freq: Status: Active Protocol: Document 01/25/22 08:15 AMB (Rec: 01/25/22 16:18 AMB [id number]) Lumbar Spine Range of Motion Lumbar Spine Active Degrees Testing Position Standing Flexion 40 Extension 10 Lateral Flexion Left 10 Lateral Flexion Right 10 ROM Limitations Pain PT-OP-L Special Tests Start: 01/25/22 07:36 Freq: Status: Active Protocol: Document 01/25/22 08:15 AMB (Rec: 01/27/22 21:39 AMB [id number]-) Special Tests Lumbar Spine Special Tests Slump Test Results - PT-OP-M Strength Start: 01/25/22 07:36 Freq: Status: Active Protocol: Document 01/25/22 08:15 AMB (Rec: 01/27/22 21:39 AMB [id number]-) Hip Strength Hip Manual Muscle Testing Right Flexion (L2) 4+ Good+ Extension (S1) 4 Good Abduction 4 Good Left Flexion (L2) 4- Good- Extension (S1) 4 Good Abduction 4 Good PT-OP-Q Treatments Start: 01/25/22 07:36 Freq: Status: Active Protocol: Document 02/07/22 10:49 AMB (Rec: 02/07/22 10:59 AMB [id number]) Therapeutic Exercises Sitting Exercises hamstring stretch Reps/Minutes 30x2 seated lumbar flexion Reps/Minutes 30x2 Other Exercises cat cow Reps/Minutes 10 Comments cued to avoid pain, small ROM thread the needle Side bilateral Reps/Minutes 10 ea brad pose Reps/Minutes 30x2 Comments acid reflux limited Manual Therapy Treatment Soft Tissue Mobilization pin and stretch L QL Body Position Sidelying PT-OP-T Assessment and Plan Start: 01/25/22 07:36 Freq: Status: Active Protocol: Document 02/07/22 10:49 AMB (Rec: 02/07/22 10:59 AMB [id number]) Physical Therapy Assessment Goals Positional tolerance Residential Goal (LTG) Dylan will stand for 10 minutes without an increase in his baseline pain. LTG Duration 8 weeks Two Impairment Transfers Short Term Goal (STG) Dylan will perform all bed mobility without an increase in back pain. STG Duration 4 weeks Air Conditioning Unit Tester Goal (LTG) Dylan will move from sit to stand without back pain. LTG Duration 8 weeks One Impairment ROM Short Term Goal (STG) Dylan will increase his lumbar extension range to at least 15 degrees without pain. STG Duration 4 weeks Assessment Summary Assessment Dylan flared up his back by suddenly moving when his cat jumped on him. Given more stretches, but will need to work on stabilization if sx continue next visit. Physical Therapy Plan Next Visit Focus/Plan Next Note Type Treatment Note Next Visit Plan Core stabilization with flexion bias, review HEP: brad pose with lateral sidebend, thread the needle
--- NOTE | 2022-03-04 15:56 | PT.OTN ---
Current Diagnoses Low back pain, unspecified (03/03/22) Left lower quadrant pain (03/03/22) Physical Therapy Treatment Note PT-OP-A Visit Information Start: 01/25/22 07:36 Freq: Status: Active Protocol: Document 03/03/22 13:45 AMB (Rec: 03/04/22 07:29 AMB [id number]) Out-Patient Physical Therapy Visit Information Visit Information Visit Type Treatment Note Visit Start Time 13:45 Visit Stop Time 14:30 Total Visit Minutes 45 Visit Number 4 PT-OP-B Current Condition Start: 01/25/22 07:36 Freq: Status: Active Protocol: Document 01/25/22 08:16 AMB (Rec: 01/25/22 09:05 AMB [id number]) Current Condition History of Current Condition Onset Date About a month ago Current Complaints L low back pain History of Current Condition Back issues for decades, but acue pain started a month ago, no specific incident, but wondering if yardwork caused it. Was having L groin pain that is better now. Does have a history of bilateral hernia surgery. Doing yardwork, but has given that up at this point. Sudden braking in the car hurts the back, rolling over in bed, moving from sit to stand. Walking is not as painful. In his 40s was diagnosed with DDD and was running 35 miles throughout the week. Previous to recent injury was able to stand 10-15 minutes without back pain, now micha to stand 2-3 minutes. Treatment Goals Patient/Caregiver Goals Reduce pain, be able to return to yardwork on uneven yard Personal Factors Other Personal Factors That May Effect DMII, HTN, depression Therapy/Recovery PT-OP-C Subjective Start: 01/25/22 07:36 Freq: Status: Active Protocol: Document 03/03/22 13:45 AMB (Rec: 03/04/22 07:29 AMB [id number]) OP-PT Subjective Patient Comments Patient Comments Pt reports improvement in that he can drive in the car without pain now, but continues to have pain for about 20 seconds when moving from sit to stand. PT-OP-F Manual Assessment Start: 01/25/22 07:36 Freq: Status: Active Protocol: Document 01/25/22 08:15 AMB (Rec: 01/27/22 21:39 AMB [id number]) Manual Assessments Soft Tissue Assessment Soft Tissue Mobility Assessment Tightness at left QL> R . T Joint Mobility Assessment Joint Mobility Assessment Stiffness with PAs especially L4L5 PT-OP-G Mobility & Gait Start: 01/25/22 07:36 Freq: Status: Active Protocol: Document 01/25/22 08:15 AMB (Rec: 01/27/22 21:39 AMB [id number]-) OP Gait Assessment Comments Gait Comments Reduced trunk rotation, flat lumbar spine PT-OP-K Range of Motion Start: 01/25/22 07:36 Freq: Status: Active Protocol: Document 01/25/22 08:15 AMB (Rec: 01/25/22 16:18 AMB [id number]) Lumbar Spine Range of Motion Lumbar Spine Active Degrees Testing Position Standing Flexion 40 Extension 10 Lateral Flexion Left 10 Lateral Flexion Right 10 ROM Limitations Pain PT-OP-L Special Tests Start: 01/25/22 07:36 Freq: Status: Active Protocol: Document 01/25/22 08:15 AMB (Rec: 01/27/22 21:39 AMB [id number]-) Special Tests Lumbar Spine Special Tests Slump Test Results - PT-OP-M Strength Start: 01/25/22 07:36 Freq: Status: Active Protocol: Document 01/25/22 08:15 AMB (Rec: 01/27/22 21:39 AMB [id number]-) Hip Strength Hip Manual Muscle Testing Right Flexion (L2) 4+ Good+ Extension (S1) 4 Good Abduction 4 Good Left Flexion (L2) 4- Good- Extension (S1) 4 Good Abduction 4 Good PT-OP-Q Treatments Start: 01/25/22 07:36 Freq: Status: Active Protocol: Document 03/03/22 13:45 AMB (Rec: 03/04/22 15:56 AMB [id number]) Therapeutic Exercises Supine Exercises hamstring stretch Reps/Minutes 30x2 Comments with band SLR Reps/Minutes 10 Comments cued TA bridge Reps/Minutes 2x10 Comments cued slow movement Sitting Exercises bird dog Reps/Minutes 2x10 therapy ball Sitting Exercise Name seated TA, march, LAQ Comments pelvic circles Other Exercises cat cow Reps/Minutes 10 Comments cued to avoid pain, small ROM brad pose Reps/Minutes 30x2 Comments acid reflux limited PT-OP-T Assessment and Plan Start: 01/25/22 07:36 Freq: Status: Active Protocol: Document 03/03/22 13:45 AMB (Rec: 03/04/22 07:29 AMB [id number]) Physical Therapy Assessment Goals Positional tolerance Security Supervisor Goal (LTG) Dylan will stand for 10 minutes without an increase in his baseline pain. LTG Duration 8 weeks Two Impairment Transfers Short Term Goal (STG) Dylan will perform all bed mobility without an increase in back pain. STG Duration 4 weeks Longterm Goal (LTG) Dylan will move from sit to stand without back pain. LTG Duration 8 weeks One Impairment ROM Short Term Goal (STG) Dylan will increase his lumbar extension range to at least 15 degrees without pain. STG Duration 4 weeks Assessment Summary Assessment Spent time today on patient's questions of what exercises are ok to do. He has been using a roller and thinks that is helpful. Encouraged not to do any exercises that continue to hurt after he is done exercising. Physical Therapy Plan Next Visit Focus/Plan Next Note Type Treatment Note Next Visit Plan Core stabilization with flexion bias, review HEP: brad pose with lateral sidebend, thread the needle
--- NOTE | 2022-04-20 15:52 | PT.OPDS ---
Current Diagnoses Low back pain, unspecified (03/03/22) Left lower quadrant pain (03/03/22) Visit Care Team Role Provider Type Juanita Crandall PA-C Referring Provider Physician Bank Officer Specialty: EM Address: [address] [place] [address], [id number] Email: Teo Ayon MD Attending Provider Physician Family Provider Primary Care Provider Specialty: Internal Medicine Address: [address] [place] [address], [address], [place], [address] Email: [email or web address] Visit Number Visit Number 4 Discharge Summary PT-OP-B Current Condition Start: 01/25/22 07:36 Freq: Status: Active Protocol: Document 01/25/22 08:16 AMB (Rec: 01/25/22 09:05 AMB [id number]) Current Condition History of Current Condition Onset Date About a month ago Current Complaints L low back pain History of Current Condition Back issues for decades, but acue pain started a month ago, no specific incident, but wondering if yardwork caused it. Was having L groin pain that is better now. Does have a history of bilateral hernia surgery. Doing yardwork, but has given that up at this point. Sudden braking in the car hurts the back, rolling over in bed, moving from sit to stand. Walking is not as painful. In his 40s was diagnosed with DDD and was running 35 miles throughout the week. Previous to recent injury was able to stand 10-15 minutes without back pain, now micha to stand 2-3 minutes. Treatment Goals Patient/Caregiver Goals Reduce pain, be able to return to yardwork on uneven yard Personal Factors Other Personal Factors That May Effect DMII, HTN, depression Therapy/Recovery PT-OP-C Subjective Start: 01/25/22 07:36 Freq: Status: Active Protocol: Document 03/03/22 13:45 AMB (Rec: 03/04/22 07:29 AMB [id number]) OP-PT Subjective Patient Comments Patient Comments Pt reports improvement in that he can drive in the car without pain now, but continues to have pain for about 20 seconds when moving from sit to stand. PT-OP-F Manual Assessment Start: 01/25/22 07:36 Freq: Status: Active Protocol: Document 01/25/22 08:15 AMB (Rec: 01/27/22 21:39 AMB [id number]) Manual Assessments Soft Tissue Assessment Soft Tissue Mobility Assessment Tightness at left QL> R . T Joint Mobility Assessment Joint Mobility Assessment Stiffness with PAs especially L4L5 PT-OP-G Mobility & Gait Start: 01/25/22 07:36 Freq: Status: Active Protocol: Document 01/25/22 08:15 AMB (Rec: 01/27/22 21:39 AMB [id number]) OP Gait Assessment Comments Gait Comments Reduced trunk rotation, flat lumbar spine PT-OP-K Range of Motion Start: 01/25/22 07:36 Freq: Status: Active Protocol: Document 01/25/22 08:15 AMB (Rec: 01/25/22 16:18 AMB [id number]) Lumbar Spine Range of Motion Lumbar Spine Active Degrees Testing Position Standing Flexion 40 Extension 10 Lateral Flexion Left 10 Lateral Flexion Right 10 ROM Limitations Pain PT-OP-L Special Tests Start: 01/25/22 07:36 Freq: Status: Active Protocol: Document 01/25/22 08:15 AMB (Rec: 01/27/22 21:39 AMB [id number]) Special Tests Lumbar Spine Special Tests Slump Test Results - PT-OP-M Strength Start: 01/25/22 07:36 Freq: Status: Active Protocol: Document 01/25/22 08:15 AMB (Rec: 01/27/22 21:39 AMB [id number]) Hip Strength Hip Manual Muscle Testing Right Flexion (L2) 4+ Good+ Extension (S1) 4 Good Abduction 4 Good Left Flexion (L2) 4- Good- Extension (S1) 4 Good Abduction 4 Good PT-OP-T Assessment and Plan Start: 01/25/22 07:36 Freq: Status: Active Protocol: Document 04/20/22 15:50 AMB (Rec: 04/20/22 15:52 AMB [id number]) Physical Therapy Assessment Goals Positional tolerance Halfway Goal (LTG) Dylan will stand for 10 minutes without an increase in his baseline pain. LTG Duration 8 weeks Two Impairment Transfers Short Term Goal (STG) Dylan will perform all bed mobility without an increase in back pain. STG Duration 4 weeks Shale Miner Goal (LTG) Dylan will move from sit to stand without back pain. LTG Duration 8 weeks One Impairment ROM Short Term Goal (STG) Dylan will increase his lumbar extension range to at least 15 degrees without pain. STG Duration 4 weeks Assessment Summary Assessment Pt canceled his last three appointments and has not been seen in the clinic in over a month therefore he is discharged at this time. Physical Therapy Plan Discharge Physical Therapy Discharge Reasons No Longer Attending PT
== END 2022-04-25 12:03 | disposition home or self-care (01) ==
LOC: PHYS 13:45
PROVIDERS: Family Provider Internal Medicine; PCP Internal Medicine; Referring Provider Student in an Organized Health Care Education/Training Program; Visit Provider Internal Medicine
DX: M54.50 Low back pain, unspecified (principal); R10.32 Left lower quadrant pain
CPT/HCPCS: 97110; 97140; 97161

== ENCOUNTER → 2022-05-02 16:41 | Outpatient (CLI) | payer MEDICARE, OTHER, SELFPAY ==
[2022-05-02 18:09] LABS: BUN Creatinine Ratio 24.3 (6-22); Blood Urea Nitrogen 17 mg/dL (9-20); Calcium 9.2 mg/dL (8.4-10.2); Carbon Dioxide 28 mmol/L (22-32); Chloride 102 mmol/L (98-107); Estimated Glomerular Filt Rate > 60 mL/min (>60); Glucose 103 mg/dL (80-110); HEMOLYSIS 18 (0-50); Sodium 141 mmol/L (137-145)
== END ==
PROVIDERS: Family Provider Internal Medicine; PCP Internal Medicine; Referring Provider Internal Medicine Cardiovascular Disease; Visit Provider Internal Medicine Cardiovascular Disease
DX: I10 Essential (primary) hypertension (principal)
CPT/HCPCS: 36415; 80048

== ENCOUNTER → 2022-10-14 10:38 | Outpatient (CLI) | payer MEDICARE, OTHER, SELFPAY ==
[2022-10-14 11:25] LABS: Hematocrit 43.7 % (41-53); Mean Corpuscular HGB Conc 34.4 % (30-36); Mean Corpuscular Hemoglobin 31.9 PG (26-34); Mean Corpuscular Volume 92.9 fL (80-100); Platelet Count 143 X10^3/uL (150-400); Red Cell Distribution Width 12.8 % (11.6-14.8); White Blood Cell Count 5.1 X10^3/uL (4.5-11.0)
[2022-10-14 11:39] LABS: Alanine Aminotransferase 32 IU/L (<50); Albumin 3.9 g/dL (3.5-5.0); Albumin Globulin Ratio 1.3 (1.0-2.8); Alkaline Phosphatase 82 U/L (38-126); Aspartate Aminotransferase 31 IU/L (17-59); BUN Creatinine Ratio 17.4 (6-22); Blood Urea Nitrogen 12 mg/dL (9-20); Calcium 9.1 mg/dL (8.4-10.2); Carbon Dioxide 28 mmol/L (22-32); Chloride 103 mmol/L (98-107); Cholesterol 128 mg/dL (140-199); Estimated Glomerular Filt Rate > 60 mL/min (>60); Glucose 136 mg/dL (80-110); HDL Cholesterol 51 mg/dL (40-60); HEMOLYSIS < 15 (0-50); LDL Cholesterol Calculated 63 mg/dL (<100); Potassium 4.2 mmol/L (3.4-5.1); Sodium 140 mmol/L (137-145); Total Protein 6.9 g/dL (6.3-8.2); Triglycerides 70 mg/dL (35-150)
[2022-10-14 12:14] LABS: TSH w/ Reflex to FT4 1.05 uIU/mL (0.47-4.68)
[2022-10-14 14:24] LABS: Creatinine Urine Random 119.7 mg/dL
[2022-10-14 14:32] LABS: Microalbumi Creatinin Ratio Ur 9.1 ug/mg CR (<30); Microalbumin Urine Random 1.1 mg/dL (0-1.6)
[2022-10-15 06:08] LABS: Labcorp Hemoglobin (Hb) A1c 6.8 % (4.8-5.6)
== END ==
PROVIDERS: Family Provider Internal Medicine; PCP Internal Medicine; Referring Provider Internal Medicine; Visit Provider Internal Medicine
DX: N40.1 Benign prostatic hyperplasia with lower urinary tract symptoms; E11.59 Type 2 diabetes mellitus with other circulatory complications; E78.2 Mixed hyperlipidemia; I10 Essential (primary) hypertension; I25.10 Atherosclerotic heart disease of native coronary artery without angina pectoris; N13.8 Other obstructive and reflux uropathy
CPT/HCPCS: 36415; 80053; 80061; 82043; 82570; 83036; 84153; 84443; 85027

== ENCOUNTER → 2023-01-11 11:41 | Outpatient (CLI) | payer MEDICARE, OTHER, SELFPAY ==
[2023-01-13 23:08] LABS: PSA Free % 25.6 % (.); PSA, Total 4.1 ng/mL (0.0-4.0)
== END ==
PROVIDERS: Family Provider Internal Medicine; PCP Internal Medicine; Referring Provider Internal Medicine; Visit Provider Internal Medicine
DX: R97.20 Elevated prostate specific antigen [PSA] (principal)
CPT/HCPCS: 36415; 84153; 84154

== ENCOUNTER → 2023-04-04 13:51 | Outpatient (CLI) | payer MEDICARE, OTHER, SELFPAY ==
[2023-04-04 14:41] LABS: Hemoglobin A1C% w Est Avg Glu 6.5 % (4.0-6.0)
[2023-04-04 14:51] LABS: BUN Creatinine Ratio 22.5 (6-22); Blood Urea Nitrogen 16 mg/dL (9-20); Calcium 9.7 mg/dL (8.4-10.2); Carbon Dioxide 30 mmol/L (22-32); Chloride 104 mmol/L (98-107); Estimated Glomerular Filt Rate > 60 mL/min (>60); Glucose 137 mg/dL (80-110); HEMOLYSIS < 15 (0-50); Potassium 4.3 mmol/L (3.4-5.1); Sodium 138 mmol/L (137-145)
== END ==
PROVIDERS: Family Provider Internal Medicine; PCP Internal Medicine; Referring Provider Internal Medicine Cardiovascular Disease; Visit Provider Internal Medicine Cardiovascular Disease
DX: E11.59 Type 2 diabetes mellitus with other circulatory complications (principal); I10 Essential (primary) hypertension
CPT/HCPCS: 36415; 80048; 83036

== ENCOUNTER → 2023-09-12 11:09 | Outpatient (CLI) | payer MEDICARE, OTHER, SELFPAY ==
[2023-09-12 12:25] LABS: Hematocrit 42.9 % (41-53); Hemoglobin 14.7 g/dL (13.5-17.5); Mean Corpuscular HGB Conc 34.4 % (30-36); Mean Corpuscular Volume 93.1 fL (80-100); Platelet Count 134 X10^3/uL (150-400); Red Blood Cell Count 4.61 X10^6/uL (4.5-5.9); Red Cell Distribution Width 12.7 % (11.6-14.8); White Blood Cell Count 8.4 X10^3/uL (4.5-11.0)
[2023-09-12 12:57] LABS: Alanine Aminotransferase 27 IU/L (<50); Albumin 4.1 g/dL (3.5-5.0); Albumin Globulin Ratio 1.4 (1.0-2.8); Alkaline Phosphatase 88 U/L (38-126); Aspartate Aminotransferase 28 IU/L (17-59); BUN Creatinine Ratio 25.7 (6-22); Blood Urea Nitrogen 19 mg/dL (9-20); Calcium 9.3 mg/dL (8.4-10.2); Carbon Dioxide 27 mmol/L (22-32); Chloride 105 mmol/L (98-107); Estimated Glomerular Filt Rate > 60 mL/min (>60); Glucose 291 mg/dL (80-110); HEMOLYSIS < 15 (0-50); Potassium 3.7 mmol/L (3.4-5.1); Sodium 140 mmol/L (137-145); Total Protein 7.1 g/dL (6.3-8.2)
[2023-09-12 13:32] LABS: TSH w/ Reflex to FT4 0.75 uIU/mL (0.47-4.68)
[2023-09-12 15:51] LABS: Hemoglobin A1C% w Est Avg Glu 6.8 % (4.0-6.0)
== END ==
PROVIDERS: Family Provider Internal Medicine; PCP Internal Medicine; Referring Provider Internal Medicine; Visit Provider Internal Medicine
DX: R00.0 Tachycardia, unspecified (principal); E11.59 Type 2 diabetes mellitus with other circulatory complications
CPT/HCPCS: 36415; 80053; 83036; 84443; 85027

== ENCOUNTER 2023-09-30 11:22 | Observation (INO) | payer MEDICARE, OTHER, SELFPAY ==
[2023-09-30] VITALS (18 sets, daily range): BP systolic 153–205; BP diastolic 72–91; PULSE 88–135; RESP 16–34; TEMP 36.7–36.8; O2SAT 95–99; BMI 24.7
--- NOTE | 2023-09-30 11:39 | DI.RAD.S_ITS ---
PROCEDURE: XR CHEST 1V INDICATIONS: tachycardic, sob, R anterior chest pain TECHNIQUE: One view of the chest was acquired. COMPARISON: None. FINDINGS: Surgical changes and devices: None. Lungs and pleura: Lungs are clear. No pleural effusions or pneumothorax. Mediastinum: Mediastinal contours appear normal. Heart size is normal. Bones and chest wall: No suspicious bony lesions. Overlying soft tissues appear unremarkable. IMPRESSION: No acute cardiopulmonary pathology. Dictated by: Ziggy Xie M.D. on 09/30/2023 at 12:33 Approved by: Ziggy Xie M.D. on 09/30/2023 at 12:34
[2023-09-30 11:58] LABS: Add Manual Diff / Slide Review NO; Basophils Absolute Auto 100 /uL (0-100); Basophils Percent Auto 0.8 % (0-2); Eosinophils Absolute Auto 100 /uL (0-450); Eosinophils Percent Auto 1.3 % (2-4); Hematocrit 42.1 % (41-53); Hemoglobin 14.3 g/dL (13.5-17.5); Lymphocytes Absolute Auto 2000 /uL (1100-4500); Lymphocytes Percent Auto 19.7 % (25-40); Mean Corpuscular HGB Conc 33.9 % (30-36); Mean Corpuscular Hemoglobin 31.7 PG (26-34); Mean Corpuscular Volume 93.6 fL (80-100); Monocytes Absolute Auto 800 /uL (0-900); Neutrophils Absolute Auto 7000 /uL (1500-7000); Neutrophils Percent Auto 70.2 % (50-75); Platelet Count 105 X10^3/uL (150-400); Red Cell Distribution Width 12.6 % (11.6-14.8)
--- NOTE | 2023-09-30 11:59 | ED_ITS ---
HPI - SOB/Dyspnea General Chief Complaint: Shortness of Breath/Dyspnea Stated Complaint: SOB/GLF t-1 Time Seen by Provider: 09/30/23 11:55 Source: patient Mode of arrival: Ambulatory Limitations: no limitations History of Present Illness HPI Narrative: 78-year-old man complaining of shortness of breath with exertion and right-sided chest wall pain after a ground level fall yesterday. He did not strike his chest but caught himself with his hands as he fell forward. He is having right subpectoral chest pain with respiratory efforts. He has had a mild dry cough. On arrival he is noted to be tachycardic, the patient states that when he saw his primary care provider recently he was also noted to be tachycardic. Says that he had COVID about 2 weeks ago, 3 weeks ago he had laryngeal surgery down at the [facility]. Patient has not had fevers or shaking chills says that he has not have any known history of coronary disease or heart failure. Says he had been short of breath since having COVID. No leg swelling or leg pain. Related Data Home Medications Medication Instructions Recorded Confirmed alfuzosin 10 mg tablet,extended 10 mg PO QPM 09/30/23 09/30/23 release 24 hr aspirin 81 mg tablet,delayed 81 mg PO DAILY 09/30/23 09/30/23 release Previous Rx's Medication Instructions Recorded ketoconazole 2 % shampoo 1 applic topical 2XW PRN skin 01/11/23 irritation #120 mL atorvastatin 40 mg tablet 40 mg PO BEDTIME #90 tabs 01/20/23 losartan 25 mg tablet 25 mg PO BID #180 tabs 06/19/23 Allergies Allergy/AdvReac Type Severity Reaction Status Date / Time No Known Drug Allergies Allergy Verified 09/30/23 11:43 Patient History Medical History (Updated 09/30/23 @ 14:54 by Sai Barnes MD) Factor VII deficiency Tachycardia Elevated PSA Misophonia Eustachian tube dysfunction Primary osteoarthritis involving multiple joints Chronic low back pain History of colonic polyps GERD without esophagitis Generalized anxiety disorder Depression, major, recurrent Essential hypertension Type 2 diabetes mellitus with cardiac complication Mixed hyperlipidemia BPH w urinary obs/LUTS Vision disorder Acne PTSD (post-traumatic stress disorder) Migraines Fractures Factor V Leiden Hearing loss Hemorrhoid Coronary artery disease Surgical History Anesthesia History of hernia repair (~2019) History of thyroplasty (~2013) History of surgery (~2012) Varicocele (~1970) Family History Father Diabetes mellitus History of heart disease Mother Diabetes mellitus Hypertension Social History household members: spouse Smoking Status: Never smoker alcohol intake: current Smoking Status: Never smoker alcohol intake frequency: 0-2 drinks per day Substance Use Type: does not use Exam Narrative Exam Narrative: Alert, no acute distress HEENT: Normocephalic, atraumaitic moist mucus membranes Neck: Supple no midline tenderness no thyromegaly Lungs: Clear to ascultaion, no respiratory distress Heart: Regular rhythm and rate no murmur tachycardic, no pain with pressure on the anterior chest wall Abdomen: Normal bowel sounds, soft and nontender Extremeties: Full range of motion no deformity Neuro: Alert and oriented, normal speech moves x4 Initial Vital Signs Initial Vital Signs: Vital Signs Temperature 98.1 F 09/30/23 11:30 Pulse Rate 135 H 09/30/23 11:30 Respiratory Rate 24 09/30/23 11:30 Blood Pressure 202/89 H 09/30/23 11:30 Pulse Oximetry 96 09/30/23 11:30 Oxygen Delivery Method Room Air 09/30/23 11:30 Course Orders Ordered: ED Orders 09/30/23 11:39 XR chest 1V Stat 09/30/23 11:46 BNP [NT-proBNP (BNP-Adult 18+)] Stat Complete Blood Count AUTO DIFF Stat Comprehensive Metabolic Panel Stat D Dimer Stat Lipase Stat Magnesium Stat PTT Partial Thromboplastin Marcial Stat Prothrombin Time INR Stat TSH [Thyroid Stimulating Hormone] Stat Troponin & CK Cardiac Panel Stat 09/30/23 11:56 EKG-12 Lead Stat 09/30/23 12:33 CT angio chest PE protocol Stat 09/30/23 13:07 Urine Microscopic Stat Aspirin (Aspirin Ec 81 Mg Tablet) 81 mg PO DAILY MONICA Atorvastatin Calcium (Atorvastatin 20 Mg Tablet) 40 mg PO BEDTIME MONICA Heparin Sodium/Dextrose (Heparin Drip) 25,000 unit in 500 mls @ 31.464 mls/hr IV CONT MONICA; Protocol Last Titration: 09/30/23 13:53 Dose: 18.02 units/kg/hr, 31.5 mls/hr Documented By: RB Co-signed By: HUGO Titration: 09/30/23 13:47 Dose: 0 units/kg/hr, 0 mls/hr Documented By: NERI Co-signed By: HUGO Admin: 09/30/23 13:44 Dose: 18 units/kg/hr, 31.464 mls/hr Documented By: RB Co-signed By: PIERCE Losartan Potassium (Losartan 25 Mg Tablet) 25 mg PO BID [facility] Naloxone HCl (Naloxone 0.4 Mg/Ml Vial) 0.2 mg IV Q2MIN PRN PRN Reason: Opiate Reversal Alfuzosin 10 Mg Tablet Extended Release 24 Hr 10 mg PO QPM [facility] Last Admin: 09/30/23 17:06 Dose: Not Given Documented By: MS Discontinued Medications Heparin Sodium (Porcine) (Heparin 5,000 Unit/Ml Vial) 7,000 unit 80 unit/kg (7000 unit) IV NOW ONE Stop: 09/30/23 13:15 Last Admin: 09/30/23 13:42 Dose: 7,000 unit Documented By: NERI Consultations Consultation #1: D/W Dr Chikis Marquez Interventionalist. Without elevated troponin or proBNP, patient is not a candidate for thrombectomy. Awaiting CT report, Consultation #2: At 1:40 p.m., Dr. Xie radiology calls, patient has extensive bilateral pulmonary emboli without evidence of right heart strain. Vital Signs Vital signs: Vital Signs - 8 hr 09/30/23 11:30 09/30/23 11:44 09/30/23 11:45 Temperature 98.1 F Pulse Rate 135 H 125 H Respiratory Rate 24 Blood Pressure 202/89 H 184/86 H Pulse Oximetry 96 98 Oxygen Delivery Method Room Air 09/30/23 11:45 09/30/23 12:01 09/30/23 12:15 Temperature Pulse Rate 125 H 128 H 115 H Respiratory Rate 20 20 Blood Pressure Pulse Oximetry 98 98 Oxygen Delivery Method 09/30/23 12:30 09/30/23 12:30 09/30/23 12:53 Temperature Pulse Rate 116 H 119 H Respiratory Rate 18 26 H Blood Pressure 153/72 H Pulse Oximetry 98 Oxygen Delivery Method 09/30/23 12:54 09/30/23 12:54 09/30/23 13:15 Temperature Pulse Rate 120 H 117 H Respiratory Rate 27 H 16 Blood Pressure 174/82 H Pulse Oximetry 98 99 Oxygen Delivery Method 09/30/23 13:30 09/30/23 13:30 09/30/23 13:45 Temperature Pulse Rate 114 H 118 H Respiratory Rate 21 34 H Blood Pressure 174/78 H Pulse Oximetry 99 99 Oxygen Delivery Method 09/30/23 13:52 09/30/23 13:52 Temperature Pulse Rate 125 H Respiratory Rate 20 Blood Pressure 205/91 H Pulse Oximetry 95 Oxygen Delivery Method MDM - SOB/Dyspnea Lab Data Lab results narrative: Troponin and proBNP are normal. Has a mild thrombocytopenia with a platelet a [id number]. INR is 1.5 without anticoagulation, TSH is normal 09/30/23 11:46 09/30/23 11:46 Labs: Lab Results 09/30/23 09/30/23 Range/Units 11:46 13:07 WBC 10.0 (4.5-11.0) X10^3/uL RBC 4.50 (4.5-5.9) X10^6/uL Hgb 14.3 (13.5-17.5) g/dL Hct 42.1 (41-53) % MCV 93.6 (80-100) fL MCH 31.7 (26-34) PG MCHC 33.9 (30-36) % RDW 12.6 (11.6-14.8) % Plt Count 105 L (150-400) X10^3/uL Neut % (Auto) 70.2 (50-75) % Lymph % (Auto) 19.7 L (25-40) % [place] % (Auto) 8.0 (3-14) % Eos % (Auto) 1.3 L (2-4) % Baso % (Auto) 0.8 (0-2) % Neut # (Auto) 7000 (9396-6867) /uL Lymph # (Auto) 2000 (3120-8781) /uL [place] # (Auto) 800 (0-900) /uL Eos # (Auto) 100 (0-450) /uL Baso # (Auto) 100 (0-100) /uL PT 16.7 H (9.4-12.5) SECONDS INR 1.5 H (0.9-1.3) APTT 69 H (25.1-36.5) SECONDS D-Dimer 59444 H (<500) ng/ml Sodium 136 L (137-145) mmol/L Potassium 4.9 (3.4-5.1) mmol/L Chloride 108 H (98-107) mmol/L Carbon Dioxide 22 (22-32) mmol/L BUN 18 (9-20) mg/dL Creatinine 0.70 (0.66-1.25) mg/dL Estimated GFR > 60 (>60) mL/min BUN/Creatinine Ratio 25.7 H (6-22) Glucose 251 H (80-110) mg/dL Calcium 9.1 (8.4-10.2) mg/dL Magnesium 2.0 (1.6-2.3) mg/dL Total Bilirubin 1.4 H (0.2-1.3) mg/dL AST 37 (17-59) IU/L ALT 26 (<50) IU/L Alkaline Phosphatase 90 (38-126) U/L Total Creatine Kinase 56 (55-170) U/L Troponin I < 0.012 (0.01-0.034) ng/mL NT-Pro-B Natriuret Pep 52 (<450) pg/mL Total Protein 7.5 (6.3-8.2) g/dL Albumin 4.0 (3.5-5.0) g/dL Globulin 3.5 (1.7-4.1) g/dL Albumin/Globulin Ratio 1.1 (1.0-2.8) Lipase 53 (23-300) U/L TSH 0.972 (0.47-4.68) uIU/mL Urine RBC None seen (0-5/HPF) Urine WBC 0-1/hpf (0-5/HPF) Ur Squamous Epith Cells None seen (0-5/HPF) Urine Bacteria None seen (None) Ur Culture Indicated? Cult not indicated Vol Urine Centrifuged 10ml (spun) Urine Dip Bedside Urine Glucose Negative Bedside Urine Bilirubin - Negative Bedside Urine Ketone - Negative Urine Specific Roll 1.01 Bedside Urine Occult Blood - Negative Bedside Urine pH 6.0 Bedside Urine Protein - Negative Bedside Urine Urobilinogen - Negative Bedside Urine Nitrite - Negative Bedside Urine Leukocytes - Negative Esterase Imaging Data Chest x-ray: My Impression: Independent review portable chest, no acute findings CT angio chest\: My Impression: Independent review, bilateral pulmonary emboli Radiologist's Impression: [address] [address] [address] Scan Report Signed Patient: Dylan Covington MR#: [id number] : 1945 Acct:[id number] Age/Sex: 78 / M Date of Service: 09/30/23 Loc: ED Accession Number: [id number] Procedure: CT angio chest PE protocol Ordering Provider: Kale Moser MD PROCEDURE: CT ANGIO CHEST PE PROTOCOL INDICATIONS: sob, tachycardic, dimer > 11,000, right ant chest pain TECHNIQUE: After the administration of intravenous contrast, 2 mm thick sections acquired from the pulmonary apices to the posterior costophrenic angles. 3-dimensional maximum intensity projection (MIP) coronal and sagittal reformats were then acquired through the thorax. For radiation dose reduction, the following was used: automated exposure control, adjustment of mA and/or kV according to patient size. COMPARISON: None. FINDINGS: Image quality: Diagnostic. Pulmonary arteries: Pulmonary arteries are prominent in size. Intraluminal filling defects are noted in distal right and left main pulmonary artery extending to segmental and subsegmental branches of bilateral pulmonary arteries. Lower Neck: No enlarged lymph nodes. Thyroid: Asymmetrically enlarged left thyroid lobe is seen. No discrete thyroid nodule is identified. Axillae: No enlarged lymph nodes. Chest Wall: Unremarkable. Bones: Unremarkable. Lungs and Pleura: No pneumothorax or pleural effusions. No consolidation or suspicious nodules. Heart: Heart size is normal. No pericardial effusion. Thoracic Vessels: No aortic aneurysm. Mediastinum and Nataly: No enlarged lymph nodes. Esophagus: No wall thickening. No hiatal hernia. Upper Abdomen: Visualized upper abdomen solid organs and bowel loops appear normal. IMPRESSION: 1. Extensive bilateral pulmonary emboli involving bilateral distal main pulmonary arteries extending to segmental and subsegmental bilateral pulmonary artery branches. 2. No definite evidence of right heart strain at this time. No thoracic aortic aneurysm or dissection. Prominent size of main pulmonary artery which can be seen associated with pulmonary vascular hypertension. 3. No pleural effusion or pneumothorax. No focal infiltrate. Airway is patent. Dictated by: Ziggy Xie M.D. on 09/30/2023 at 13:35 Approved by: Ziggy Xie M.D. on 09/30/2023 at 13:40 ECG Data Interpretation: ECG shows sinus tach at 1:19 a.m.. There is anterolateral ST depression, no acute ST elevation no evidence of previous infarction intervals are normal MDM Narrative Medical decision making narrative: 78-year-old male presenting with dyspnea and tachycardia. 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 He was not anticoagulated when encountered, considered cardiac ischemia, has a normal troponin and no acute findings has been tachycardia on his EKG. D-dimer was quite elevated, CT angio confirmed pulmonary embolism. Considered the possibility of him being a candidate for thrombectomy, he has a normal troponin normal proBNP and no evidence of right heart strain on CT, therefore this was not thought to be indicated. Patient was heparinized and will be admitted to the hospitalist service. Discharge Plan Departure Patient Disposition: Admitted As Inpatient Clinical Impression: Pulmonary embolism Qualifiers: Pulmonary embolism type: multiple subsegmental (without acute cor pulmonale) Q ualified Code(s): I26.94 - Multiple subsegmental pulmonary emboli without acute cor pulmonale Admit Date/Time: 09/30/23 13:58 Admit Provider: Sai Barnes
[2023-09-30 12:03] LABS: INR 1.5 (0.9-1.3); Prothrombin Time 16.7 SECONDS (9.4-12.5)
[2023-09-30 12:05] LABS: PTT Partial Thromboplastin Tim 69 SECONDS (25.1-36.5)
[2023-09-30 12:07] LABS: Alanine Aminotransferase 26 IU/L (<50); Albumin Globulin Ratio 1.1 (1.0-2.8); Alkaline Phosphatase 90 U/L (38-126); Aspartate Aminotransferase 37 IU/L (17-59); BUN Creatinine Ratio 25.7 (6-22); Bilirubin Total 1.4 mg/dL (0.2-1.3); Blood Urea Nitrogen 18 mg/dL (9-20); Calcium 9.1 mg/dL (8.4-10.2); Carbon Dioxide 22 mmol/L (22-32); Chloride 108 mmol/L (98-107); Creatine Kinase 56 U/L (55-170); Estimated Glomerular Filt Rate > 60 mL/min (>60); Globulin 3.5 g/dL (1.7-4.1); Glucose 251 mg/dL (80-110); Lipase 53 U/L (23-300); Potassium 4.9 mmol/L (3.4-5.1); Sodium 136 mmol/L (137-145); Total Protein 7.5 g/dL (6.3-8.2)
[2023-09-30 12:13] LABS: D Dimer 11146 ng/ml (<500)
[2023-09-30 12:16] LABS: NT-proBNP (BNP-Adult 18+) 52 pg/mL (<450)
[2023-09-30 12:18] LABS: Troponin I < 0.012 ng/mL (0.01-0.034)
[2023-09-30 12:21] LABS: HEMOLYSIS 78 (0-50)
--- NOTE | 2023-09-30 12:33 | DI.CT.S_ITS ---
PROCEDURE: CT ANGIO CHEST PE PROTOCOL INDICATIONS: sob, tachycardic, dimer > 11,000, right ant chest pain TECHNIQUE: After the administration of intravenous contrast, 2 mm thick sections acquired from the pulmonary apices to the posterior costophrenic angles. 3-dimensional maximum intensity projection (MIP) coronal and sagittal reformats were then acquired through the thorax. For radiation dose reduction, the following was used: automated exposure control, adjustment of mA and/or kV according to patient size. COMPARISON: None. FINDINGS: Image quality: Diagnostic. Pulmonary arteries: Pulmonary arteries are prominent in size. Intraluminal filling defects are noted in distal right and left main pulmonary artery extending to segmental and subsegmental branches of bilateral pulmonary arteries. Lower Neck: No enlarged lymph nodes. Thyroid: Asymmetrically enlarged left thyroid lobe is seen. No discrete thyroid nodule is identified. Axillae: No enlarged lymph nodes. Chest Wall: Unremarkable. Bones: Unremarkable. Lungs and Pleura: No pneumothorax or pleural effusions. No consolidation or suspicious nodules. Heart: Heart size is normal. No pericardial effusion. Thoracic Vessels: No aortic aneurysm. Mediastinum and Nataly: No enlarged lymph nodes. Esophagus: No wall thickening. No hiatal hernia. Upper Abdomen: Visualized upper abdomen solid organs and bowel loops appear normal. IMPRESSION: 1. Extensive bilateral pulmonary emboli involving bilateral distal main pulmonary arteries extending to segmental and subsegmental bilateral pulmonary artery branches. 2. No definite evidence of right heart strain at this time. No thoracic aortic aneurysm or dissection. Prominent size of main pulmonary artery which can be seen associated with pulmonary vascular hypertension. 3. No pleural effusion or pneumothorax. No focal infiltrate. Airway is patent. Dictated by: Ziggy Xie M.D. on 09/30/2023 at 13:35 Approved by: Ziggy Xie M.D. on 09/30/2023 at 13:40
[2023-09-30 13:15] LABS: Thyroid Stimulating Hormone 0.972 uIU/mL (0.47-4.68)
[2023-09-30] MEDS: HEPARIN 5,000 UNIT/ML VIAL 7000 UNIT IV (13:42)
[2023-09-30] MEDS: HEPARIN DRIP 25,000 UNIT/500 ML IV.SOLN 31.464 UNIT IV (13:44)
--- NOTE | 2023-09-30 13:47 | PC.NURSE ---
Immediately after Heparin and bolus was given and dripped began provider walked into the room and asked this RN to pause the drip and that he was going to consult another provider about this patient. This RN immediately stopped the infusion. 7000 unit bolus had already been given. Pump states 0.5ml has been administered at the time of pausing.
[2023-09-30 13:50] LABS: Urine Volume 10mL (spun)
[2023-09-30 13:51] LABS: Bacteria Urine None Seen; Culture Indicated Urine Cult Not Indicated; RBC Urine None Seen (0-5/HPF); Squamous Epithelial Cell Urine None Seen (0-5/HPF); WBC Urine 0-1/HPF (0-5/HPF)
--- NOTE | 2023-09-30 13:56 | PC.NURSE ---
Provider came back into the room and asked this RN to restart the heparin infusion as it was ordered. Infusion restarted.
--- NOTE | 2023-09-30 14:50 | P.HP_ITS ---
History of Present Illness History of Present Illness Date Patient Seen: 09/30/23 Chief complaint: SOB/GLF t-1 Narrative: This is a 78-year-old male with factor 7 deficiency, and INR 1.5, deep alcohol intake of 3 glasses of wine, a recent COVID infection and a recent vocal cord replacement surgery. The surgery took many hours. Subsequent to the surgery he developed COVID and has been short of breath now for 2 weeks. He was treated with Paxlovid. He contacted his doctor yesterday and again today due to right- sided chest pain. He had tripped and fallen onto his left knee on a hillside yesterday so thought he might have sprained his chest. The D-dimer was quite elevated and the Chest CTA showed bilateral pulmonary emboli. He will be started on an IV heparin drip and transitioned to oral apixaban tomorrow. The moderate sinus tachycardia has been present for several weeks and he was pending 7 day monitor to assess that also. [facility] Medical History (Updated 09/30/23 @ 14:54 by Sai Barnes MD) Factor VII deficiency Tachycardia Elevated PSA Misophonia Eustachian tube dysfunction Primary osteoarthritis involving multiple joints Chronic low back pain History of colonic polyps GERD without esophagitis Generalized anxiety disorder Depression, major, recurrent Essential hypertension Type 2 diabetes mellitus with cardiac complication Mixed hyperlipidemia BPH w urinary obs/LUTS Vision disorder Acne PTSD (post-traumatic stress disorder) Migraines Fractures Factor V Leiden Hearing loss Hemorrhoid Coronary artery disease Surgical History Anesthesia History of hernia repair (~2019) History of thyroplasty (~2013) History of surgery (~2012) Varicocele (~1970) Family History Father Diabetes mellitus History of heart disease Mother Diabetes mellitus Hypertension Social History Smoking Status: Never smoker Comment: His backup decision maker is his . Meds Home Medications and Allergies Home Medications Medication Instructions Recorded Confirmed Type ketoconazole 2 % shampoo 1 applic topical 2XW PRN skin 01/11/23 09/30/23 Rx irritation #120 mL atorvastatin 40 mg tablet 40 mg PO BEDTIME #90 tabs 01/20/23 09/30/23 Rx losartan 25 mg tablet 25 mg PO BID #180 tabs 06/19/23 09/30/23 Rx alfuzosin 10 mg tablet,extended 10 mg PO QPM 09/30/23 09/30/23 History release 24 hr aspirin 81 mg tablet,delayed 81 mg PO DAILY 09/30/23 09/30/23 History release Allergies Allergy/AdvReac Type Severity Reaction Status Date / Time No Known Drug Allergies Allergy Verified 09/30/23 11:43 Review of Systems Review of Systems Narrative: Positive for shortness of breath, right-sided chest pain and recent vocal cord surgery. Negative for fevers, chills, sweats, abdominal pain, nausea vomiting, diarrhea, hematuria, joint pain, rash, seizures, new allergies. Exam Vital Signs (past 8 hours): - 09/30/23 11:30 09/30/23 11:44 09/30/23 11:45 Temperature 98.1 F Pulse Rate 135 H 125 H Respiratory Rate 24 Blood Pressure 202/89 H 184/86 H Pulse Oximetry 96 98 Oxygen Delivery Method Room Air 09/30/23 11:45 09/30/23 12:01 09/30/23 12:15 Temperature Pulse Rate 125 H 128 H 115 H Respiratory Rate 20 20 Blood Pressure Pulse Oximetry 98 98 Oxygen Delivery Method 09/30/23 12:30 09/30/23 12:30 09/30/23 12:53 Temperature Pulse Rate 116 H 119 H Respiratory Rate 18 26 H Blood Pressure 153/72 H Pulse Oximetry 98 Oxygen Delivery Method 09/30/23 12:54 09/30/23 12:54 09/30/23 13:15 Temperature Pulse Rate 120 H 117 H Respiratory Rate 27 H 16 Blood Pressure 174/82 H Pulse Oximetry 98 99 Oxygen Delivery Method 09/30/23 13:30 09/30/23 13:30 09/30/23 13:45 Temperature Pulse Rate 114 H 118 H Respiratory Rate 21 34 H Blood Pressure 174/78 H Pulse Oximetry 99 99 Oxygen Delivery Method 09/30/23 13:52 09/30/23 13:52 09/30/23 14:00 Temperature Pulse Rate 125 H Respiratory Rate 20 Blood Pressure 205/91 H 163/74 H Pulse Oximetry 95 Oxygen Delivery Method 09/30/23 14:00 09/30/23 14:15 Temperature Pulse Rate 109 H 116 H Respiratory Rate 23 25 H Blood Pressure Pulse Oximetry 98 99 Oxygen Delivery Method Oxygen Delivery Method Room Air Narrative Exam Narrative: Alert and oriented x3. No apparent distress. No overt anxiety but he gives somewhat misleading answers to questions. Despite a listed history of coronary artery disease he insists he does not have any heart problems and only sees the investigation division sergeant, because they insist on it. ? Pupils are equally round and reactive to light and occult extraocular muscles are intact. There is no thyromegaly. No carotid bruits are heard. JVD is less than 6 cm. Heart is tachycardic, regular rhythm without murmur Lungs are clear to auscultation bilaterally Abdomen is soft, bowel sounds positive, nontender, no organomegaly Extremities have no ankle edema. There is no calf tenderness. Neuro exam: Cranial nerves 2-12 test intact, no tremors present. Motor function is 5/5 throughout. The area over the larynx has healed very well without any signs of residual scar. Objective Labs 09/30/23 11:46 09/30/23 11:46 Labs: Laboratory Results - last 24 hr 09/30/23 09/30/23 11:46 13:07 WBC 10.0 RBC 4.50 Hgb 14.3 Hct 42.1 MCV 93.6 MCH 31.7 MCHC 33.9 RDW 12.6 Plt Count 105 L Neut % (Auto) 70.2 Lymph % (Auto) 19.7 L [place] % (Auto) 8.0 Eos % (Auto) 1.3 L Baso % (Auto) 0.8 Neut # (Auto) 7000 Lymph # (Auto) 2000 [place] # (Auto) 800 Eos # (Auto) 100 Baso # (Auto) 100 PT 16.7 H INR 1.5 H APTT 69 H D-Dimer 95549 H Sodium 136 L Potassium 4.9 Chloride 108 H Carbon Dioxide 22 BUN 18 Creatinine 0.70 Estimated GFR > 60 BUN/Creatinine Ratio 25.7 H Glucose 251 H Calcium 9.1 Magnesium 2.0 Total Bilirubin 1.4 H AST 37 ALT 26 Alkaline Phosphatase 90 Total Creatine Kinase 56 Troponin I < 0.012 NT-Pro-B Natriuret Pep 52 Total Protein 7.5 Albumin 4.0 Globulin 3.5 Albumin/Globulin Ratio 1.1 Lipase 53 TSH 0.972 Urine RBC None seen Urine WBC 0-1/hpf Ur Squamous Epith Cells None seen Urine Bacteria None seen Ur Culture Indicated? Cult not indicated Vol Urine Centrifuged 10ml (spun) Assessment & Plan Assessment & Plan narrative: This is a 78-year-old male with recent COVID and subsequent hypercoagulability who presents with right-sided chest pain and a bilateral pulmonary embolus. He also had prolonged immobilization during a recent laryngeal replacement procedure. Bilateral pulmonary emboli -secondary to prolonged immobilization of vocal cord surgery and COVID infection hypercoagulability. -patient is mildly tachycardic so we will be watched on telemetry, started on IV heparin and transitioned to oral apixaban. He is likely to return home soon. Sinus tachycardia -this is apparently pre dating the COVID infection. He had been pending a 7 day heart monitor by PCP. -so far no signs of significant arrhythmia. Coronary artery disease -he denies any history of prior angioplasty or stenting. -he follows up with Cardiology at [place]. -he is on aspirin and atorvastatin. Hypertension -continue losartan Recent vocal cord replacement surgery - reports that his voice volume has improved. -no signs of complication. Healing well by neck appearance. Factor 7 deficiency -likely accounting for the INR of 1.5, follow. -details in medical history include factor 5 Leiden deficiency which the patient denies. Diabetes in past medical history -patient denies diabetes. -presenting glucose 251, follow and initiate treatment if this trend persists. BPH -continue alfuzosin His is his backup decision maker.
--- NOTE | 2023-09-30 15:30 | PC.ADMIT ---
Addendum entered by Tisha Rios R.N. 09/30/23 16:09: Pt refusing to removed pants, skin assessment is based on what could be visualized and pt report. Original Note: [email or web address] [facility] Admission Note: The patient,Dylan Covington,78 y/o, was given written information regarding hospital policies, unit procedures and contact persons. Patient's smoking status: Never smoker. Vital Signs - 8 hr 09/30/23 11:30 09/30/23 11:44 09/30/23 11:45 Temperature 98.1 F Pulse Rate 135 H 125 H Respiratory Rate 24 Blood Pressure 202/89 H 184/86 H Pulse Oximetry 96 98 Oxygen Delivery Method Room Air 09/30/23 11:45 09/30/23 12:01 09/30/23 12:15 Temperature Pulse Rate 125 H 128 H 115 H Respiratory Rate 20 20 Blood Pressure Pulse Oximetry 98 98 Oxygen Delivery Method 09/30/23 12:30 09/30/23 12:30 09/30/23 12:53 Temperature Pulse Rate 116 H 119 H Respiratory Rate 18 26 H Blood Pressure 153/72 H Pulse Oximetry 98 Oxygen Delivery Method 09/30/23 12:54 09/30/23 12:54 09/30/23 13:15 Temperature Pulse Rate 120 H 117 H Respiratory Rate 27 H 16 Blood Pressure 174/82 H Pulse Oximetry 98 99 Oxygen Delivery Method 09/30/23 13:30 09/30/23 13:30 09/30/23 13:45 Temperature Pulse Rate 114 H 118 H Respiratory Rate 21 34 H Blood Pressure 174/78 H Pulse Oximetry 99 99 Oxygen Delivery Method 09/30/23 13:52 09/30/23 13:52 09/30/23 14:00 Temperature Pulse Rate 125 H Respiratory Rate 20 Blood Pressure 205/91 H 163/74 H Pulse Oximetry 95 Oxygen Delivery Method 09/30/23 14:00 09/30/23 14:01 09/30/23 14:15 Temperature Pulse Rate 109 H 116 H Respiratory Rate 23 25 H Blood Pressure Pulse Oximetry 98 99 Oxygen Delivery Method Room Air Pt arrived via gurney, able to ambulate to bed with no distress, connected to monitoring equipment, heparin gtt infusing as ordered, telemetry placed, NSR, oriented to room and call light system, all questions answered, no further needs at this time.
[2023-09-30 15:53] LABS: MRSA (Nasal) PCR Not Detected (Not Detect)
[2023-09-30 20:25] LABS: PTT Partial Thromboplastin Tim > 400 SECONDS (25.1-36.5)
[2023-09-30] MEDS: LOSARTAN 25 MG TABLET PO (20:41)
[2023-09-30] MEDS: ATORVASTATIN 20 MG TABLET 40 MG PO (20:41)
[2023-10-01] VITALS: BP 142/73; PULSE 68; RESP 17; TEMP 36.4; O2SAT 97
--- NOTE | 2023-10-01 01:31 | PC.NURSE ---
Patient is alert and oriented. Breath sounds CTA and has no signs or SOB at rest and denies any SOB when out of bed. HRR with telemetry reading of SR. BP elevated at 169/78 and was given Losartan and when rechecked at 0000 BP was 142/73. Denied nausea. BT present and abdomen is soft; reports having had BM earlier today. Denied any dysuria but did not have his Afuzosin tonight (not a formulary drug and did not bring from home yet) so states he will likely have dysuria later related to that; instructed to have bring in a.m. Has been independent with mobility in room and is steady on feet. Refused SCD's so reminded to ankle wave. Last PTT was > [address] Fiore was informed and instructed to follow protocol for heparin infusion. RN coordinator, Patsy, was informed of PTT resulted as well as MD's instructions. Fall risk score is high but patient declines use of bed alarm but verbalized agreement to call if weak, unsteady, lightheaded or dizzy when getting out of bed.
[2023-10-01 03:04] LABS: Add Manual Diff / Slide Review NO; Basophils Absolute Auto 100 /uL (0-100); Basophils Percent Auto 1.1 % (0-2); Eosinophils Absolute Auto 100 /uL (0-450); Eosinophils Percent Auto 1.5 % (2-4); Hematocrit 39.8 % (41-53); Hemoglobin 13.7 g/dL (13.5-17.5); Lymphocytes Absolute Auto 2600 /uL (1100-4500); Lymphocytes Percent Auto 27.9 % (25-40); Mean Corpuscular HGB Conc 34.3 % (30-36); Mean Corpuscular Hemoglobin 31.8 PG (26-34); Mean Corpuscular Volume 92.6 fL (80-100); Monocytes Absolute Auto 900 /uL (0-900); Monocytes Percent Auto 9.5 % (3-14); Neutrophils Absolute Auto 5600 /uL (1500-7000); Platelet Count 99 X10^3/uL (150-400); Red Cell Distribution Width 12.8 % (11.6-14.8); White Blood Cell Count 9.3 X10^3/uL (4.5-11.0)
[2023-10-01 03:11] LABS: INR 1.6 (0.9-1.3); Prothrombin Time 18.1 SECONDS (9.4-12.5)
[2023-10-01 03:16] LABS: Alanine Aminotransferase 21 IU/L (<50); Albumin 3.3 g/dL (3.5-5.0); Albumin Globulin Ratio 1.1 (1.0-2.8); Alkaline Phosphatase 78 U/L (38-126); Aspartate Aminotransferase 25 IU/L (17-59); BUN Creatinine Ratio 23.9 (6-22); Bilirubin Total 1.1 mg/dL (0.2-1.3); Blood Urea Nitrogen 16 mg/dL (9-20); Calcium 8.8 mg/dL (8.4-10.2); Carbon Dioxide 25 mmol/L (22-32); Chloride 111 mmol/L (98-107); Estimated Glomerular Filt Rate > 60 mL/min (>60); Glucose 128 mg/dL (80-110); HEMOLYSIS < 15 (0-50); Potassium 3.7 mmol/L (3.4-5.1); Sodium 138 mmol/L (137-145); Total Protein 6.3 g/dL (6.3-8.2)
[2023-10-01 03:29] LABS: PTT Partial Thromboplastin Tim > 400 SECONDS (25.1-36.5)
[2023-10-01 03:59] VITALS: BP 174/78
[2023-10-01 04:00] VITALS: BP 173/79; PULSE 67; RESP 17; TEMP 36.5; O2SAT 97
--- NOTE | 2023-10-01 07:28 | PM.DS.1 ---
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 The surgery took many hours. Subsequent to the surgery he developed COVID and has been short of breath now for 2 weeks. He was treated with Paxlovid. He contacted his doctor yesterday and again today due to right-sided chest pain. He had tripped and fallen onto his left knee on a hillside yesterday so thought he might have sprained his chest. The D-dimer was quite elevated and the Chest CTA showed bilateral pulmonary emboli. He will be started on an IV heparin drip and transitioned to oral apixaban tomorrow. The moderate sinus tachycardia has been present for several weeks and he was pending 7 day monitor to assess that also. Discharge Providers Provider Date of admission: 09/30/23 13:58 Discharge Date: 10/01/23 Primary care physician: Ganga Joseph MD Discharge provider: Sai Barnes MD Summary Hospital Course Hospital Course: This is a 78-year-old male with recent COVID and subsequent hypercoagulability who presented with right-sided chest pain and bilateral pulmonary emboli. He also had prolonged immobilization during a recent laryngeal replacement procedure. Bilateral pulmonary emboli -secondary to prolonged immobilization of vocal cord surgery and COVID infection hypercoagulability. -patient was mildly tachycardic so was watched on telemetry, started on IV heparin and transitioned to oral apixaban. -the tachycardia resolved. He still has some right-sided chest pain. He tolerated his 1st apixaban dose so was discharged home with plans for 10 mg of apixaban b.i.d. for 7 days and then 5 mg b.i.d. after that. He will follow up with Dr. Joseph. -multiple patient questions were answered and issues such as duration of treatment, etc. were deferred for final decision with his primary care physician. Sinus tachycardia -this is apparently pre dating the COVID infection. He had been pending a 7 day heart monitor by PCP. -no signs of significant arrhythmia. Coronary artery disease -he denies any history of prior angioplasty or stenting. -he follows up with Cardiology at [place]. -he is on aspirin and atorvastatin. Hypertension -continue losartan Recent vocal cord replacement surgery - reports that his voice volume has improved. -no signs of complication. Healing well by neck appearance. Factor 7 deficiency -likely accounting for the INR of 1.5, follow. -details in medical history include factor 5 Leiden deficiency which the patient denies. Diabetes in past medical history -patient denies diabetes. -presenting glucose 251, A1c 7.0 with a.m. blood sugar 128 on 09/30 -continue dietary control. BPH -continue alfuzosin Status at Discharge Cognitive/behavioral status at discharge: oriented Functional status at discharge: independent ambulation Overall status at discharge: patient is back to baseline Exam Vital Signs (past 8 hours): - 10/01/23 00:00 10/01/23 03:59 10/01/23 04:00 Temperature 97.5 F L 97.7 F Pulse Rate 68 67 Respiratory Rate 17 17 Blood Pressure 142/73 H 174/78 H 173/79 H Pulse Oximetry 97 97 Oxygen Flow Rate 0 0 Oxygen Delivery Method Room Air Oxygen Flow Rate 0 Narrative Exam Narrative: Alert and oriented x3. No apparent distress. Many questions regarding his condition Heart is regular rate and rhythm without murmur Lungs are clear to auscultation bilaterally Extremities have no ankle edema Objective Labs 10/01/23 02:50 10/01/23 02:50 Labs: Laboratory Results - last 24 hr 09/30/23 09/30/23 09/30/23 11:46 13:07 14:33 WBC 10.0 RBC 4.50 Hgb 14.3 Hct 42.1 MCV 93.6 MCH 31.7 MCHC 33.9 RDW 12.6 Plt Count 105 L Neut % (Auto) 70.2 Lymph % (Auto) 19.7 L Cottle % (Auto) 8.0 Eos % (Auto) 1.3 L Baso % (Auto) 0.8 Neut # (Auto) 7000 Lymph # (Auto) 2000 Cottle # (Auto) 800 Eos # (Auto) 100 Baso # (Auto) 100 PT 16.7 H INR 1.5 H APTT 69 H D-Dimer 53646 H Sodium 136 L Potassium 4.9 Chloride 108 H Carbon Dioxide 22 BUN 18 Creatinine 0.70 Estimated GFR > 60 BUN/Creatinine Ratio 25.7 H Glucose 251 H Hemoglobin A1c Calcium 9.1 Magnesium 2.0 Total Bilirubin 1.4 H AST 37 ALT 26 Alkaline Phosphatase 90 Total Creatine Kinase 56 Troponin I < 0.012 NT-Pro-B Natriuret Pep 52 Total Protein 7.5 Albumin 4.0 Globulin 3.5 Albumin/Globulin Ratio 1.1 Lipase 53 TSH 0.972 Urine RBC None seen Urine WBC 0-1/hpf Ur Squamous Epith Cells None seen Urine Bacteria None seen Ur Culture Indicated? Cult not indicated Vol Urine Centrifuged 10ml (spun) Nasal Screen MRSA (PCR) Not detected 09/30/23 09/30/23 10/01/23 15:35 19:45 02:50 WBC 9.3 RBC 4.30 L Hgb 13.7 Hct 39.8 L MCV 92.6 MCH 31.8 MCHC 34.3 RDW 12.8 Plt Count 99 L Neut % (Auto) 60.0 Lymph % (Auto) 27.9 Cottle % (Auto) 9.5 Eos % (Auto) 1.5 L Baso % (Auto) 1.1 Neut # (Auto) 5600 Lymph # (Auto) 2600 Cottle # (Auto) 900 Eos # (Auto) 100 Baso # (Auto) 100 PT 18.1 H INR 1.6 H APTT > 400 H* D > 400 H* D-Dimer Sodium 138 Potassium 3.7 D Chloride 111 H Carbon Dioxide 25 BUN 16 Creatinine 0.67 Estimated GFR > 60 BUN/Creatinine Ratio 23.9 H Glucose 128 H D Hemoglobin A1c 7.0 H Calcium 8.8 Magnesium Total Bilirubin 1.1 AST 25 ALT 21 Alkaline Phosphatase 78 Total Creatine Kinase Troponin I NT-Pro-B Natriuret Pep Total Protein 6.3 Albumin 3.3 L Globulin 3.0 Albumin/Globulin Ratio 1.1 Lipase TSH Urine RBC Urine WBC Ur Squamous Epith Cells Urine Bacteria Ur Culture Indicated? Vol Urine Centrifuged Nasal Screen MRSA (PCR) [facility] Medical History (Updated 09/30/23 @ 14:54 by Sai Barnes MD) Factor VII deficiency Tachycardia Elevated PSA Misophonia Eustachian tube dysfunction Primary osteoarthritis involving multiple joints Chronic low back pain History of colonic polyps GERD without esophagitis Generalized anxiety disorder Depression, major, recurrent Essential hypertension Type 2 diabetes mellitus with cardiac complication Mixed hyperlipidemia BPH w urinary obs/LUTS Vision disorder Acne PTSD (post-traumatic stress disorder) Migraines Fractures Factor V Leiden Hearing loss Hemorrhoid Coronary artery disease Surgical History Anesthesia History of hernia repair (~2019) History of thyroplasty (~2013) History of surgery (~2012) Varicocele (~1970) Family History Father Diabetes mellitus History of heart disease Mother Diabetes mellitus Hypertension Social History household members: spouse Smoking Status: Never smoker alcohol intake: current Discharge Plan Discharge Plan Patient Disposition: Home Provider Discharge Comment: Follow up with Dr. Joseph in one week. Discharge orders & Medications Prescriptions: New Eliquis 5 mg Tablet 10 mg PO BID Qty: 14 0RF Eliquis 5 mg tablet 5 mg PO BID Qty: 60 0RF Rx Instructions: Start this dose on 10/08/23 after completing the 7 days of 10 mg BID Continued atorvastatin 40 mg tablet 40 mg PO BEDTIME Qty: 90 3RF losartan 25 mg tablet 25 mg PO BID Qty: 180 3RF ketoconazole 2 % shampoo 1 applic topical 2XW PRN (Reason: skin irritation) Qty: 120 3RF Rx Instructions: LATHER INTO SCALP LET SIT 5 TO 10 MINUTES BEFORE RINSING USE TWO TO THREE TIMES WEEKLY alfuzosin 10 mg tablet extended release 24 hr 10 mg PO QPM Patient Comments: take 1 tablet by mouth once daily IMMEDIATELY AFTER THE SAME MEAL aspirin 81 mg Tablet,Delayed Release (/Ec) 81 mg PO DAILY Follow up/Referrals: Ganga Joseph MD [Primary Care Provider] - Diet/Activity/Treatments Diet: Diet as Tolerated Visit Report/Discharge Packet Stand Alone Forms: Patient Portal/API, Stroke Signs & Symptoms Discharge Data Primary Care Provider: Ganga Joseph V Quality VTE Deep Vein Thrombosis/Pulmonary Embolism Present on Admission: Yes
[2023-10-01 07:43] VITALS: BP 168/79; PULSE 82; RESP 16; TEMP 36.5; O2SAT 98
--- NOTE | 2023-10-01 08:38 | CM.DANOTE ---
Initial DCP Assessment Note Reviewed EMR and team rounds for pt's medical status and updates. Met with pt at bedside to introduce self and role. Pt was found to be alert/oriented, able to discuss d/c preferences/needs/questions. He has been medically cleared for d/c, and will be transported home by spouse later this morning. Payor: Medicare PCP: Dr. Joseph Pt is a 78 year-old M who presented to the ED last evening with complaints of shortness of breath and R-sided chest pain following a GLF. He was found to be tachycardic in the ED, CT Angio/Chest was positive for extensive bilateral pulmonary emboli. He was started on Heparin, had IV Eliquis earlier this morning. Pt states that he feels good, and had questions about what his f/u needs were going to be. MASTER BLACK BELT explained the d/c process and that the Hospitalist and RN will explain d/c instructions and f/u recommendations. He expressed understanding of plan and denied any further d/c needs/resources. DCP will continue to follow until he leaves for any further evolving assistance needs. 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 Yes Advance Directives on File No History Provided By Patient,Medical Record Has Patient been admitted in last 30 No days? Prior Living Arrangements House Household Members spouse Type of transporation used prior to Drives own vehicle admit Independent with ADL's Yes Is patient alert and oriented? Yes Comment N/A Caregiver for Another No Comment None Comment No home d/c needs identified at this time. Barriers to Discharge No Discharge Plan Home Transportation Arrangement Spouse Referrals Initiated None needed Whiteboard Updated in Patient Room with Yes name and ext. # of Poultry Husbandry Worker Review Status In Process Please Provide Date Initial DC 10/01/23 Assessment Was Performed
[2023-10-01] MEDS: APIXABAN 5 MG TABLET 10 MG PO (08:52)
[2023-10-01 08:53] VITALS: BP 168/79; PULSE 88
[2023-10-01] MEDS: ASPIRIN EC 81 MG TABLET PO (08:53)
[2023-10-01] MEDS: LOSARTAN 25 MG TABLET PO (08:53)
[2023-10-01] MEDS: SODIUM CHLORIDE 0.9% FLUSH 10 ML IV (09:06)
== END 2023-10-01 11:45 | disposition home or self-care (01) ==
LOC: ED 13:44 → AC 14:07 → ICU 10-01 08:22 → AC 10-02 09:06
PROVIDERS: Admitting Provider Family Medicine; Emergency Provider Emergency Medicine; Family Provider Internal Medicine; PCP Internal Medicine; Referring Provider Emergency Medicine; Visit Provider Family Medicine
DX: I26.99 Other pulmonary embolism without acute cor pulmonale (principal); W01.0XXA Fall on same level from slipping, tripping and stumbling without subsequent striking against object, initial encounter; Y92.89 Other specified places as the place of occurrence of the external cause; D68.51 Activated protein C resistance; I25.10 Atherosclerotic heart disease of native coronary artery without angina pectoris; I10 Essential (primary) hypertension; Z98.890 Other specified postprocedural states; R49.0 Dysphonia
CPT/HCPCS: 36415; 71045; 71275; 80053; 81003; 81015; 82550; 82962; 83036; 83690; 83735; 83880; 84443; 84484; 85025; 85379; 85610; 85730; 87797; 92523; 93005; 96365; 96366; 96375; 99284; G0378; J1644; Q9967

== ENCOUNTER → 2023-10-09 09:20 | Outpatient (CLI) | payer MEDICARE, OTHER, SELFPAY ==
[2023-09-30 15:29] VITALS: BMI 24.7
--- NOTE | 2023-10-09 09:21 | DI.ECHO.S_ITS ---
[facility] [facility]---------+ [facility] +---------+ : : [address] : : : : [id number] : : : : Phone: [phone] Echocardiogram Report + + :Name: SAVITA ARCE Study Date: 10/09/2023 Height: 74 in : [facility] Weight: 186 lb : : Gender: Male BSA: 2.1 m2 : :: 1945 Age: 78 yrs BP: 154/79 mmHg: :Reason For Study: TACHYCARDIA : :Ordering Physician: AGUSTO, : :KINJAL Performed By: Rigo Olea : :Referring: KINJAL LIZ : + + Interpretation Summary Normal left ventricle size with ejection fraction 65-70%. No significant valvular abnormality. Comparison is made with the echocardiogram of 12/22/2015, no significant change. Procedure: A two-dimensional transthoracic echocardiogram with color flow and Doppler was performed. The study quality was technically adequate. Comparison is made with the echocardiogram of 12/22/2015. The patient was in sinus tachycardia with heart rates between 95-118 bpm during the exam. Left Ventricle: The left ventricle is normal in size and wall thickness. The ejection fraction is estimated to be 65-70%. There are no focal wall motion abnormalities. Right Ventricle: Borderline right ventricular enlargement. The right ventricular systolic function is normal. Atria: The left atrial size is normal. Right atrial size is normal. The interatrial septum grossly appears intact with no obvious evidence for an atrial septal defect. Mitral Valve: The mitral valve is grossly normal. The mitral valve leaflets are mildly calcified. There is no mitral valve stenosis. There is no mitral regurgitation noted. Aortic Valve: The aortic valve is trileaflet. There is mild aortic valve sclerosis. There is no aortic valve stenosis. There is trace aortic regurgitation. Tricuspid Valve: The tricuspid valve is normal in structure and function. There is no tricuspid stenosis. There is mild tricuspid regurgitation. Pulmonic Valve: The pulmonic valve is not well seen, but is grossly normal. There is no pulmonic valvular stenosis. There is a trace or physiologic amount of pulmonic regurgitation. Great Vessels: The aortic root is normal size. The dimensions of the ascending aorta are normal. The inferior vena cava was not visualized. Pericardium/ Pleura There is no pericardial effusion. There is no pleural effusion. MMode/2D Measurements & Calculations LVIDd: 4.8 cm LVOT diam: 2.5 cm LVIDs: 2.9 cm Ao root diam: 3.5 cm FS: 40.3 % asc Aorta Diam: 3.2 cm IVSd: 1.1 cm LVPWd: 0.94 cm LV fernandez. diameter/BSA (cm/m^2): 2.3 LV sys. diameter/BSA (cm/m^2): 1.4 LA A2 area: 14.6 cm2 RA long axis: 4.8 cm LA A4 area: 14.6 cm2 RA area: 16.0 cm2 LA length (vol): 4.6 cm RA vol: 45.0 ml LA vol: 39.7 ml RA : 21.4 ml/m2 LA vol index: 18.9 ml/m2 RVD1 (basal): 4.1 cm RVD2 (mid): 3.6 cm TAPSE: 3.2 cm Doppler Measurements & Calculations Ao V2 max: 136.1 cm/sec LVOT Max Julio C: 105.9 cm/sec Ao V2 mean: 103.6 cm/sec LV V1 max P.5 mmHg Ao max P.4 mmHg LV V1 VTI: 20.9 cm Ao mean P.6 mmHg JANET(I,D): 3.9 cm2 Ao V2 VTI: 26.4 cm JANET(V,D): 3.8 cm2 sev ratio: 0.79 JANET indexed to BSA (cm^2/m^2): 1.8 MV E max julio c: 68.6 cm/sec TR max julio c: 290.8 cm/sec MV A max julio c: 85.9 cm/sec TR max P.8 mmHg MV E/A: 0.80 PA V2 max: 114.6 cm/sec Med Peak E' Julio C: 8.3 cm/sec PA V2 mean: 83.1 cm/sec E/E' med: 8.3 PA mean P.0 mmHg Lat Peak E' Julio C: 9.1 cm/sec PA pr(Accel): 41.3 mmHg E/E' lat: 7.5 E/e' average: 7.9 MV dec time: 0.15 sec SV(LVOT): 102.9 ml Electronically signed by: Mary Prather on Reading Physician:10/09/2023 02:53 PM
== END ==
LOC: ECHO 09:20
PROVIDERS: Family Provider Internal Medicine; PCP Internal Medicine; Referring Provider Internal Medicine; Visit Provider Internal Medicine
DX: R00.0 Tachycardia, unspecified (principal); I08.2 Rheumatic disorders of both aortic and tricuspid valves
CPT/HCPCS: 93306

== ENCOUNTER → 2023-10-12 13:45 | Outpatient (CLI) | payer MEDICARE, OTHER, SELFPAY ==
[2023-09-30 15:29] VITALS: BMI 24.7
== END ==
LOC: CAR 13:45
PROVIDERS: Family Provider Internal Medicine; PCP Internal Medicine; Referring Provider Internal Medicine; Visit Provider Internal Medicine
DX: R00.0 Tachycardia, unspecified (principal)
CPT/HCPCS: 93242

== ENCOUNTER 2023-12-21 14:30 | Outpatient (RCR) | payer MEDICARE, OTHER, SELFPAY ==
--- NOTE | 2023-09-27 17:01 | ST.OPIE ---
Visit Care Team Role Provider Type Ganga Joseph MD Family Provider Physician Primary Care Provider Specialty: Internal Medicine Address: [address] [place] [address], [id number] Email: [email or web address] Amanda Fowler MD Attending Provider Non-Staff Referring Provider Specialty: Otolaryngology (ENT) Address: [address] [facility], [id number], [place], [address] Email: Speech-Language Pathology Initial Evaluation TAXI TRUCK DRIVER Voice Resonance Evaluation Start: 09/27/23 11:26 Freq: Status: Active Protocol: Document 09/27/23 11:26 BUBBA (Rec: 09/27/23 11:28 BUBBA [id number]) Voice and Resonance Assessment Session Time Visit Start Time 11:15 Visit Stop Time 12:00 Total Visit Minutes 45 Visit Information Visit Number Initial Evaluation Plan of Care Dates 09/27/23-12/28/23 Insurance Information [employer] Next Note Type Next Note Type Treatment Note Referral Referring Physician Dr. Amanda Fowler Reason for Referral Dysphonia Setting Setting Outpatient Care Patient History Patient History Pt is a 78-year-old male with a history of vocal dysfunction dating back to 2013, specifically hoarseness and vocal fold bowing. Pt began voice therapy in 2013 for dysphonia and throat pain, and ultimately underwent Type I medialization thyroplasty in 2014 and again August 29 2023 at . It is reported that the pt previously took Neurontin 400mg, which helped relieve some throat pain. He also has a history of GERD, including a OWENS test (remote pH monitoring test which uses a capsule in the esophagus to monitor esophageal pH) which did indicate GERD. He reports when he feels like his GERD is acting up he will take omeprazole for about a week and then not have symptoms for a few month and then have to take it again. Around March 2023 he visited an [facility] TAXI TRUCK DRIVER/ Laryngology clinic for an evaluation due to continued dysphonia increasing over the last year, and scope revealed mild-moderate erythema and bowing of the vocal folds, right greater than left. Glottic closure was observed to be incomplete with a mild anterior gap. Additionally, mild muscle tension was observed bilaterally, with moderate BOT recruitment/ tension. Treatment probes during the scope indicated decreased strain with forward focus/coordination, which is consistent with results of previous voice therapy in 2013 in which he exhibited near normal voice quality using good breath support, increased orality, and resonant voice techniques. Of note, pt's records from TAXI TRUCK DRIVER eval at [facility] indicate the pt has previous demonstrated improvements with PhoRTE approach. For this most recent surgery, pt chose not to pursue therapy with and rather to pursue voice therapy more locally. Therefore, he presents to this clinic today for an evaluation of voice with complaints of hoarseness/ breathiness, decreased loudness. He reports his voice sounds worse after surgery. He does not report symptoms of dysphagia. Hearing Hearing Level Normal Auditory History He reports he has ear/head pressure and things sound like he is underwater at times or he is on a plane and his ears have popped. He says he has gone to several doctors regarding this issue and had hearing aids but states they did not work well. [place] Langauge Language(s) Spoken in the Home Gu[place]ese Educational Status Education Level DANA BACK Occupational Status Occupation Status Retired Previous Therapy Previous Speech-Language Therapy Yes History of Previous Therapy Pt was previously seen for voice therapy in 2013 pre-op before medialization thyroplasty was performed in 2014. He had voice therapy by a speech therapist at this clinic from Mar 2023- June 2024 and was discharged d/t him traveling for a month. He now returns to pursue voice therapy. He reports forward resonance techniques helped a lot. Pt completed a voice evaluation with TAXI TRUCK DRIVER and ENT team at [facility], but wanted to pursue therapy locally. Oral Motor Assessment Source: [place] [employer] (DAMAR[employer]). Oral-Motor Eval Completed No: WFL Oral-Motor Assessment Informal observation indicates oral motor structure and function are WFL for speech and swallowing. Subjective Subjective Pt arrived to the evaluation early and independently ambulated to the evaluation room. He was alert and oriented. Pt is a good historian and provided relevant medical history as well as providing written records from Speech/ Laryngology evaluation. Pt presents with mildly decreased volume and mildly hoarse vocal quality. - Laryngeal Performance S/Z Ratio S/Z Ratio 1.16 Functional for Speech Yes Reduced Laryngeal Function Relative to Yes Respiration Voice Handicap Index Function Subtotal 28 Physical Subtotal 25 Emotional Subtotal 25 Total Score 78 Severity Severe (61-120) VHI Comments Pt experiences impairment as severe, though voice is functional for comm. Maximum Phonation Time MPT Norms: Women (15-25) Men (25-35) Loudness (50-60 dB); Speaking Rate: Oral Reading of Sentences (190 Words Per Minute); Oral Reading of Paragraphs (160-170 WPM); Speaking Rate in Conversation (150-250 WPM) Maximum Phonation Time ~11 seconds Maximum Phonation Time Reduced Maximum Phonation Time Comments Slightly reduced, but increases with decreased volume. According to The Source for Voice Disorders ( [employer] 2004), functional MPT should fall between 15-20s. Pitch [place] Pitch [place] Pitch Breaks,Cessation of Voicing Pitch [place] Comments Pitch glides up revealed average maximum pitch of about 350 Hz. Pitch glides down revealed average minimum pitch of 39Hz. During pitch glides , pt demonstrated occasional pitch breaks and cessation of voicing, particularly during pitch glides down. Pt had difficulty steadily decreasing pitch and relaxing voice into lower register. Breath Support Breath Support At Rest Clavicular Breath Support Sustained Phonation Mixed Breath Support Sustained Phonation Some diaphragmatic movement, Comment mostly clavicular. Good awareness. Breath Support Conversation Clavicular Speaks on Room Air Yes Postural Alignment Stance Balanced Shoulders Symmetrical Voice Pitch Range Norms: Women (100-300 Hz) Men (70-250 Hz) Fundamental Frequency Norms: Women (Mean: 225 Hz; Range: 155-334 Hz) Men ( Mean: 128 Hz; Range: 85-196 Hz) Voice Pitch Normal Voice Loudness Mildly Soft/Quiet Voice Phonatory-based Quality Breathy,Hoarse,Weak Paradoxical Vocal Fold Movement No Indications Resonance Nasal Resonance Normal Other Observations Throat Clearing Therapeutic Techniques Therapy Tactics Shifting Tone Focus,Breath Support,Increase Loudness Findings Findings Mild Impairment Voice/Resonance Assessment Assessment Pt presents with dysphonia characterized by decreased breath support, habitual throat clearing, and mildly hoarse/weak voice. Though the pt's voice is functional for overall communication, his voice impairment has a significant impact on his everyday functioning and emotions based on results of the Voice Handicap Index. For example, the pt endorses that he Always feels that his voice problem upsets him and feelings left out of conversation because of his voice and Almost Always feels that his voice makes him feel handicapped. Based on this assessment and Pt hx with his voice issues, pt will benefit from techniques to increase glottic closure and decrease muscle tension (including base of tongue tension) during voicing . He will also benefit from continued reflux management. Proposed techniques for vocal therapy include adduction exercises, pitch glides and breath support techniques to target presbylarynx/vocal fold atrophy. Additionally, techniques to decrease muscle tension and hoarse vocal quality will include resonant voice therapy approaches. Prognosis Rehabilitation Potential Good - Recommendations Treatment Recommended Yes Treatment Frequency/Duration Once every 1-2 wks for 3 months until pt is can complete exercises indep. Placement Recommendation Home Therapy Recommendations Instruction in: diaphragmatic breathing techniques for breath support, GERD management, adduction exercises, resonant voice techniques. Monitoring of: Maximum Phonation time, perceptual voice characteristics, pt perception of voice impairment on QOL. Short Term Goals 1. Pt will demonstrate accurate completion of breath support exercises in order to complete inhalation/exhalation ratio of 8s:16s in 75% of opportunities. 2. Pt will demonstrate accurate completion of resonance shifting exercises with 80% accuracy independently as measured by TAXI TRUCK DRIVER during 1:1 session. 3. Pt will demonstrate accurate completion of vocal adduction exercises with 80% accuracy independently as measured by TAXI TRUCK DRIVER during 1:1 session. 4. Pt will benefit from TAXI TRUCK DRIVER education regarding reflux precautions and vocal hygiene techniques. Textile Science Technician Goals LTG 1: Pt will decrease score on Voice Handicap Index by at least 16 points (from 78 to 60 ) to decrease perceived severity of vocal impairment from Severe to Moderate. LTG 2: Pt will demonstrate accurate recall and completion of breath support and vocal exercise techniques with 80% accuracy independently following instruction from TAXI TRUCK DRIVER . LTG 3: Pt will increase maximum phonation time to an average of at least 15 seconds at an average of at least 65dB. Patient/Caregiver Education Patient/Family Education Described results of evaluation,Patient Understanding,Patient Needs More Info Vocally Abusive Behavior Behavior Rating Alcohol Consumption Occasionally Mouth Breathing Uses tape at night to facilitate nose breathing Singing Abusively Never Participation In Plays Never Smoking Never Yelling/Screaming Never
--- NOTE | 2023-09-27 17:01 | ST.OPPOC ---
Physical, Occupational & Speech Therapy At [facility] Visit Care Team Role Provider Type Ganga Joseph MD Family Provider Physician Primary Care Provider Address: [address] [place] [address], [address] Amanda Fowler MD Attending Provider Non-Staff Referring Provider Address: [address] [facility], [id number], [place], [address] Speech Pathology Plan of Care Plan of Care Dates 09/27/23-12/28/[address] Amanda Fowler Patient History Pt is a 78-year-old male with a history of vocal dysfunction dating back to 2013, specifically hoarseness and vocal fold bowing. Pt began voice therapy in 2013 for dysphonia and throat pain, and ultimately underwent Type I medialization thyroplasty in 2014 and again August 29 2023 at . It is reported that the pt previously took Neurontin 400mg, which helped relieve some throat pain. He also has a history of GERD, including a OWENS test (remote pH monitoring test which uses a capsule in the esophagus to monitor esophageal pH) which did indicate GERD. He reports when he feels like his GERD is acting up he will take omeprazole for about a week and then not have symptoms for a few month and then have to take it again. Around March 2023 he visited an [facility] FORKLIFT OPERATOR/ Laryngology clinic for an evaluation due to continued dysphonia increasing over the last year, and scope revealed mild-moderate erythema and bowing of the vocal folds, right greater than left. Glottic closure was observed to be incomplete with a mild anterior gap. Additionally, mild muscle tension was observed bilaterally, with moderate BOT recruitment/ tension. Treatment probes during the scope indicated decreased strain with forward focus/coordination, which is consistent with results of previous voice therapy in 2013 in which he exhibited near normal voice quality using good breath support, increased orality, and resonant voice techniques. Of note, pt's records from FORKLIFT OPERATOR andrew at [facility] indicate the pt has previous demonstrated improvements with PhoRTE approach. For this most recent surgery, pt chose not to pursue therapy with and rather to pursue voice therapy more locally. Therefore, he presents to this clinic today for an evaluation of voice with complaints of hoarseness/ breathiness, decreased loudness. He reports his voice sounds worse after surgery. He does not report symptoms of dysphagia. Voice/Resonance Findings Mild Impairment Voice/Resonance Assessment Pt presents with dysphonia characterized by decreased breath support, habitual throat clearing, and mildly hoarse/weak voice. Though the pt's voice is functional for overall communication, his voice impairment has a significant impact on his everyday functioning and emotions based on results of the Voice Handicap Index. For example, the pt endorses that he Always feels that his voice problem upsets him and feelings left out of conversation because of his voice and Almost Always feels that his voice makes him feel handicapped. Based on this assessment and Pt hx with his voice issues, pt will benefit from techniques to increase glottic closure and decrease muscle tension (including base of tongue tension) during voicing. He will also benefit from continued reflux management. Proposed techniques for vocal therapy include adduction exercises, pitch glides and breath support techniques to target presbylarynx/vocal fold atrophy. Additionally, techniques to decrease muscle tension and hoarse vocal quality will include resonant voice therapy approaches. Voice/Resonance Prognosis Good Voice/Resonance Yes Recommendations Voice/Resonance Treatment Once every 1-2 wks for 3 months until pt is can Frequency complete exercises indep. Therapy Recommendations Instruction in: diaphragmatic breathing techniques for breath support, GERD management, adduction exercises, resonant voice techniques. Monitoring of: Maximum Phonation time, perceptual voice characteristics, pt perception of voice impairment on QOL. Short Term Goals 1. Pt will demonstrate accurate completion of breath support exercises in order to complete inhalation/exhalation ratio of 8s:16s in 75% of opportunities. 2. Pt will demonstrate accurate completion of resonance shifting exercises with 80% accuracy independently as measured by FORKLIFT OPERATOR during 1:1 session. 3. Pt will demonstrate accurate completion of vocal adduction exercises with 80% accuracy independently as measured by FORKLIFT OPERATOR during 1:1 session. 4. Pt will benefit from FORKLIFT OPERATOR education regarding reflux precautions and vocal hygiene techniques. Rotary Cutter Goals LTG 1: Pt will decrease score on Voice Handicap Index by at least 16 points (from 78 to 60) to decrease perceived severity of vocal impairment from Severe to Moderate. LTG 2: Pt will demonstrate accurate recall and completion of breath support and vocal exercise techniques with 80% accuracy independently following instruction from FORKLIFT OPERATOR. LTG 3: Pt will increase maximum phonation time to an average of at least 15 seconds at an average of at least 65dB. Comment: Electronically Signed by: FRANCISCO Lou 09/27/23 5027 If you are in agreement with this Plan of Care, please return a signed and dated copy. I have reviewed this Plan of Care and certify that the skilled therapy services above are required to meet the patient?s needs. Physician Signature Date Printed Name and Credentials Clinical Instructor Signature Printed Name and Credentials
--- NOTE | 2023-09-28 10:10 | ST.OPIE ---
Visit Care Team Role Provider Type Ganga Joseph MD Family Provider Physician Primary Care Provider Specialty: Internal Medicine Address: [address] [place] [address], [id number] Email: [email or web address] Amanda Fowler MD Attending Provider Non-Staff Referring Provider Specialty: Otolaryngology (ENT) Address: [address] [facility], [address], [place], [address] Email: Speech-Language Pathology Initial Evaluation COMPUTATIONAL BIOLOGIST Voice Resonance Evaluation Start: 09/27/23 11:26 Freq: Status: Active Protocol: Document 09/27/23 11:26 BUBBA (Rec: 09/27/23 11:28 BUBBA [id number]) Voice and Resonance Assessment Session Time Visit Start Time 11:15 Visit Stop Time 12:00 Total Visit Minutes 45 Visit Information Visit Number Initial Evaluation Plan of Care Dates 09/27/23-12/28/23 Insurance Information [employer] Next Note Type Next Note Type Treatment Note Referral Referring Physician Dr. Amanda Fowler Reason for Referral Dysphonia Setting Setting Outpatient Care Patient History Patient History Pt is a 78-year-old male with a history of vocal dysfunction dating back to 2013, specifically hoarseness and vocal fold bowing. Pt began voice therapy in 2013 for dysphonia and throat pain, and ultimately underwent Type I medialization thyroplasty in 2014 and again August 29 2023 at . It is reported that the pt previously took Neurontin 400mg, which helped relieve some throat pain. He also has a history of GERD, including a OWENS test (remote pH monitoring test which uses a capsule in the esophagus to monitor esophageal pH) which did indicate GERD. He reports when he feels like his GERD is acting up he will take omeprazole for about a week and then not have symptoms for a few month and then have to take it again. Around March 2023 he visited an [facility] COMPUTATIONAL BIOLOGIST/ Laryngology clinic for an evaluation due to continued dysphonia increasing over the last year, and scope revealed mild-moderate erythema and bowing of the vocal folds, right greater than left. Glottic closure was observed to be incomplete with a mild anterior gap. Additionally, mild muscle tension was observed bilaterally, with moderate BOT recruitment/ tension. Treatment probes during the scope indicated decreased strain with forward focus/coordination, which is consistent with results of previous voice therapy in 2013 in which he exhibited near normal voice quality using good breath support, increased orality, and resonant voice techniques. Of note, pt's records from COMPUTATIONAL BIOLOGIST eval at [facility] indicate the pt has previous demonstrated improvements with PhoRTE approach. For this most recent surgery, pt chose not to pursue therapy with and rather to pursue voice therapy more locally. Therefore, he presents to this clinic today for an evaluation of voice with complaints of hoarseness/ breathiness, decreased loudness. He reports his voice sounds worse after surgery. He does not report symptoms of dysphagia. Hearing Hearing Level Normal Auditory History He reports he has ear/head pressure and things sound like he is underwater at times or he is on a plane and his ears have popped. He says he has gone to several doctors regarding this issue and had hearing aids but states they did not work well. [place] Langauge Language(s) Spoken in the Home [place] Educational Status Education Level DANA BACK Occupational Status Occupation Status Retired Previous Therapy Previous Speech-Language Therapy Yes History of Previous Therapy Pt was previously seen for voice therapy in 2013 pre-op before medialization thyroplasty was performed in 2014. He had voice therapy by a speech therapist at this clinic from Mar 2023- June 2024 and was discharged d/t him traveling for a month. He now returns to pursue voice therapy. He reports forward resonance techniques helped a lot. Pt completed a voice evaluation with COMPUTATIONAL BIOLOGIST and ENT team at [facility], but wanted to pursue therapy locally. Oral Motor Assessment Source: Citizen Of [place] [employer] (DAMAR[employer]). Oral-Motor Eval Completed No: WFL Oral-Motor Assessment Informal observation indicates oral motor structure and function are WFL for speech and swallowing. Subjective Subjective Pt arrived to the evaluation early and independently ambulated to the evaluation room. He was alert and oriented. Pt is a good historian and provided relevant medical history as well as providing written records from Speech/ Laryngology evaluation. Pt presents with mildly decreased volume and mildly hoarse vocal quality. - Laryngeal Performance S/Z Ratio S/Z Ratio 1.16 Functional for Speech Yes Reduced Laryngeal Function Relative to Yes Respiration Voice Handicap Index Function Subtotal 28 Physical Subtotal 25 Emotional Subtotal 25 Total Score 78 Severity Severe (61-120) VHI Comments Pt experiences impairment as severe, though voice is functional for comm. Maximum Phonation Time MPT Norms: Women (15-25) Men (25-35) Loudness (50-60 dB); Speaking Rate: Oral Reading of Sentences (190 Words Per Minute); Oral Reading of Paragraphs (160-170 WPM); Speaking Rate in Conversation (150-250 WPM) Maximum Phonation Time ~11 seconds Maximum Phonation Time Reduced Maximum Phonation Time Comments Slightly reduced, but increases with decreased volume. According to The Source for Voice Disorders ( [employer] 2004), functional MPT should fall between 15-20s. Pitch [place] Pitch [place] Pitch Breaks,Cessation of Voicing Pitch [place] Comments Pitch glides up revealed average maximum pitch of about 350 Hz. Pitch glides down revealed average minimum pitch of 39Hz. During pitch glides , pt demonstrated occasional pitch breaks and cessation of voicing, particularly during pitch glides down. Pt had difficulty steadily decreasing pitch and relaxing voice into lower register. Breath Support Breath Support At Rest Clavicular Breath Support Sustained Phonation Mixed Breath Support Sustained Phonation Some diaphragmatic movement, Comment mostly clavicular. Good awareness. Breath Support Conversation Clavicular Speaks on Room Air Yes Postural Alignment Stance Balanced Shoulders Symmetrical Voice Pitch Range Norms: Women (100-300 Hz) Men (70-250 Hz) Fundamental Frequency Norms: Women (Mean: 225 Hz; Range: 155-334 Hz) Men ( Mean: 128 Hz; Range: 85-196 Hz) Voice Pitch Normal Voice Loudness Mildly Soft/Quiet Voice Phonatory-based Quality Breathy,Hoarse,Weak Paradoxical Vocal Fold Movement No Indications Resonance Nasal Resonance Normal Other Observations Throat Clearing Therapeutic Techniques Therapy Tactics Shifting Tone Focus,Breath Support,Increase Loudness Findings Findings Mild Impairment Voice/Resonance Assessment Assessment Pt presents with dysphonia characterized by decreased breath support, habitual throat clearing, and mildly hoarse/weak voice. Though the pt's voice is functional for overall communication, his voice impairment has a significant impact on his everyday functioning and emotions based on results of the Voice Handicap Index. For example, the pt endorses that he Always feels that his voice problem upsets him and feelings left out of conversation because of his voice and Almost Always feels that his voice makes him feel handicapped. Based on this assessment and Pt hx with his voice issues, pt will benefit from techniques to increase glottic closure and decrease muscle tension (including base of tongue tension) during voicing . He will also benefit from continued reflux management. Proposed techniques for vocal therapy include adduction exercises, pitch glides and breath support techniques to target presbylarynx/vocal fold atrophy. Additionally, techniques to decrease muscle tension and hoarse vocal quality will include resonant voice therapy approaches. Prognosis Rehabilitation Potential Good - Recommendations Treatment Recommended Yes Treatment Frequency/Duration Once every 1-2 wks for 3 months until pt is can complete exercises indep. Placement Recommendation Home Therapy Recommendations Instruction in: diaphragmatic breathing techniques for breath support, GERD management, adduction exercises, resonant voice techniques. Monitoring of: Maximum Phonation time, perceptual voice characteristics, pt perception of voice impairment on QOL. Short Term Goals 1. Pt will demonstrate accurate completion of breath support exercises in order to complete inhalation/exhalation ratio of 8s:16s in 75% of opportunities. 2. Pt will demonstrate accurate completion of resonance shifting exercises with 80% accuracy independently as measured by COMPUTATIONAL BIOLOGIST during 1:1 session. 3. Pt will demonstrate accurate completion of vocal adduction exercises with 80% accuracy independently as measured by COMPUTATIONAL BIOLOGIST during 1:1 session. 4. Pt will benefit from COMPUTATIONAL BIOLOGIST education regarding reflux precautions and vocal hygiene techniques. Pst Supervisor Goals LTG 1: Pt will decrease score on Voice Handicap Index by at least 16 points (from 78 to 60 ) to decrease perceived severity of vocal impairment from Severe to Moderate. LTG 2: Pt will demonstrate accurate recall and completion of breath support and vocal exercise techniques with 80% accuracy independently following instruction from COMPUTATIONAL BIOLOGIST . LTG 3: Pt will increase maximum phonation time to an average of at least 15 seconds at an average of at least 65dB. Patient/Caregiver Education Patient/Family Education Described results of evaluation,Patient Understanding,Patient Needs More Info Vocally Abusive Behavior Behavior Rating Alcohol Consumption Occasionally Mouth Breathing Uses tape at night to facilitate nose breathing Singing Abusively Never Participation In Plays Never Smoking Never Yelling/Screaming Never
--- NOTE | 2023-09-28 10:10 | ST.OPPOC ---
Physical, Occupational & Speech Therapy At [facility] Visit Care Team Role Provider Type Ganga Joseph MD Family Provider Physician Primary Care Provider Address: [address] [place] [address], [id number] Amanda Fowler MD Attending Provider Non-Staff Referring Provider Address: [address] [facility], [address], [place], [address] Speech Pathology Plan of Care Plan of Care Dates 09/27/23-12/28/[address] Amanda Fowler Patient History Pt is a 78-year-old male with a history of vocal dysfunction dating back to 2013, specifically hoarseness and vocal fold bowing. Pt began voice therapy in 2013 for dysphonia and throat pain, and ultimately underwent Type I medialization thyroplasty in 2014 and again August 29 2023 at . It is reported that the pt previously took Neurontin 400mg, which helped relieve some throat pain. He also has a history of GERD, including a OWENS test (remote pH monitoring test which uses a capsule in the esophagus to monitor esophageal pH) which did indicate GERD. He reports when he feels like his GERD is acting up he will take omeprazole for about a week and then not have symptoms for a few month and then have to take it again. Around March 2023 he visited an [facility] NUTRITION TECH/ Laryngology clinic for an evaluation due to continued dysphonia increasing over the last year, and scope revealed mild-moderate erythema and bowing of the vocal folds, right greater than left. Glottic closure was observed to be incomplete with a mild anterior gap. Additionally, mild muscle tension was observed bilaterally, with moderate BOT recruitment/ tension. Treatment probes during the scope indicated decreased strain with forward focus/coordination, which is consistent with results of previous voice therapy in 2013 in which he exhibited near normal voice quality using good breath support, increased orality, and resonant voice techniques. Of note, pt's records from NUTRITION TECH andrew at [facility] indicate the pt has previous demonstrated improvements with PhoRTE approach. For this most recent surgery, pt chose not to pursue therapy with and rather to pursue voice therapy more locally. Therefore, he presents to this clinic today for an evaluation of voice with complaints of hoarseness/ breathiness, decreased loudness. He reports his voice sounds worse after surgery. He does not report symptoms of dysphagia. Voice/Resonance Findings Mild Impairment Voice/Resonance Assessment Pt presents with dysphonia characterized by decreased breath support, habitual throat clearing, and mildly hoarse/weak voice. Though the pt's voice is functional for overall communication, his voice impairment has a significant impact on his everyday functioning and emotions based on results of the Voice Handicap Index. For example, the pt endorses that he Always feels that his voice problem upsets him and feelings left out of conversation because of his voice and Almost Always feels that his voice makes him feel handicapped. Based on this assessment and Pt hx with his voice issues, pt will benefit from techniques to increase glottic closure and decrease muscle tension (including base of tongue tension) during voicing. He will also benefit from continued reflux management. Proposed techniques for vocal therapy include adduction exercises, pitch glides and breath support techniques to target presbylarynx/vocal fold atrophy. Additionally, techniques to decrease muscle tension and hoarse vocal quality will include resonant voice therapy approaches. Voice/Resonance Prognosis Good Voice/Resonance Yes Recommendations Voice/Resonance Treatment Once every 1-2 wks for 3 months until pt is can Frequency complete exercises indep. Therapy Recommendations Instruction in: diaphragmatic breathing techniques for breath support, GERD management, adduction exercises, resonant voice techniques. Monitoring of: Maximum Phonation time, perceptual voice characteristics, pt perception of voice impairment on QOL. Short Term Goals 1. Pt will demonstrate accurate completion of breath support exercises in order to complete inhalation/exhalation ratio of 8s:16s in 75% of opportunities. 2. Pt will demonstrate accurate completion of resonance shifting exercises with 80% accuracy independently as measured by NUTRITION TECH during 1:1 session. 3. Pt will demonstrate accurate completion of vocal adduction exercises with 80% accuracy independently as measured by NUTRITION TECH during 1:1 session. 4. Pt will benefit from NUTRITION TECH education regarding reflux precautions and vocal hygiene techniques. Travel Occupational Therapist Goals LTG 1: Pt will decrease score on Voice Handicap Index by at least 16 points (from 78 to 60) to decrease perceived severity of vocal impairment from Severe to Moderate. LTG 2: Pt will demonstrate accurate recall and completion of breath support and vocal exercise techniques with 80% accuracy independently following instruction from NUTRITION TECH. LTG 3: Pt will increase maximum phonation time to an average of at least 15 seconds at an average of at least 65dB. Comment: Electronically Signed by: FRANCISCO Lou 09/28/23 1016 If you are in agreement with this Plan of Care, please return a signed and dated copy. I have reviewed this Plan of Care and certify that the skilled therapy services above are required to meet the patient?s needs. Physician Signature Date Printed Name and Credentials Clinical Instructor Signature Printed Name and Credentials
--- NOTE | 2023-10-06 10:29 | ST.OPTN ---
Visit Care Team Role Provider Type Ganga Joseph MD Family Provider Physician Primary Care Provider Address: [address] [place] [address], [id number] Amanda Fowler MD Attending Provider Non-Staff Referring Provider Address: [address] [facility], [id number], [place], [address] ADULT PROBATION OFFICER Treatment Note ADULT PROBATION OFFICER Treatment Note Start: 10/06/23 10:22 Freq: Status: Active Protocol: Document 10/06/23 10:22 BUBBA (Rec: 10/06/23 10:29 MA [id number]) Speech Pathology Treatment Note Session Time Visit Start Time 09:45 Visit Stop Time 10:20 Total Visit Minutes 35 Visit Information Visit Number 2 Plan of Care Dates 09/27/23-12/28/23 Next Note Type Next Note Type Treatment Note General Information Patient History Pt is a 78-year-old male with a history of vocal dysfunction dating back to 2013, specifically hoarseness and vocal fold bowing. Pt began voice therapy in 2013 for dysphonia and throat pain, and ultimately underwent Type I medialization thyroplasty in 2014 and again August 29 2023 at . It is reported that the pt previously took Neurontin 400mg, which helped relieve some throat pain. He also has a history of GERD, including a OWENS test (remote pH monitoring test which uses a capsule in the esophagus to monitor esophageal pH) which did indicate GERD. He reports when he feels like his GERD is acting up he will take omeprazole for about a week and then not have symptoms for a few month and then have to take it again. Around March [address] [facility] ADULT PROBATION OFFICER/ Laryngology clinic for an evaluation due to continued dysphonia increasing over the last year, and scope revealed mild-moderate erythema and bowing of the vocal folds, right greater than left. Glottic closure was observed to be incomplete with a mild anterior gap. Additionally, mild muscle tension was observed bilaterally, with moderate BOT recruitment/ tension. Treatment probes during the scope indicated decreased strain with forward focus/coordination, which is consistent with results of previous voice therapy in 2013 in which he exhibited near normal voice quality using good breath support, increased orality, and resonant voice techniques. Of note, pt's records from ADULT PROBATION OFFICER eval at [facility] indicate the pt has previous demonstrated improvements with PhoRTE approach. For this most recent surgery, pt chose not to pursue therapy with [facility] and rather to pursue voice therapy more locally. Therefore, he presents to this clinic today for an evaluation of voice with complaints of hoarseness/ breathiness, decreased loudness. He reports his voice sounds worse after surgery. He does not report symptoms of dysphagia. Subjective Observations/Patient Presentation Pt arrived to therapy on time. He brought in most recent and past voice exercises. Pt reports he was admitted to the ICU for 2 nights last week d/ t a pulmonary embolism. He reports slight SOB but feeling better. Objective Coil Maker Goals LTG 1: Pt will decrease score on Voice Handicap Index by at least 16 points (from 78 to 60 ) to decrease perceived severity of vocal impairment from Severe to Moderate. LTG 2: Pt will demonstrate accurate recall and completion of breath support and vocal exercise techniques with 80% accuracy independently following instruction from ADULT PROBATION OFFICER . LTG 3: Pt will increase maximum phonation time to an average of at least 15 seconds at an average of at least 65dB. Treatment Activities Instruction in diaphragmatic breathing, semi occluded vocal tract, resonance exercises Assessment Assessment of Improvement Pt brought in voice exercises taught during previous round of speech therapy, prior to most recent vocal fold surgery . Pt demonstrated diaphragmatic breathing exercises with about 100% accuracy with use of visual cues to expand belly when inhaling. Pt completed semi occluded vocal tract (SOVT) exercises with about 100% accuracy requiring mild cues, specifically sustained phonation, pitch glides, single pitch pulses. He also completed resonance voice exercises at the sentence level. He states this has been the biggest game changer for him, in regards to sounding clearing d/t him stating he has always talked from his throat. He completed resonance sentences with 100% accuracy. ST encouraged Pt to continue with HEP with the addition of diaphragmatic breathing exercises, SOVT exercises and resonsance voice exercsies. Pt verbalized understanding. ST recommended Pt not complete exercises if he is SOB or is having pain/ discomfort. Plan Provided Patient/Caregiver Instruction Home Exercise Program,Plan of Care,Questions/Concerns
--- NOTE | 2023-10-11 13:44 | ST.OPTN ---
Visit Care Team Role Provider Type Ganga Joseph MD Family Provider Physician Primary Care Provider Address: [address] [place] [address], [id number] Amanda Fowler MD Attending Provider Non-Staff Referring Provider Address: [address] [facility], [id number], [place], [address] TANNING WHEEL OPERATOR Treatment Note TANNING WHEEL OPERATOR Treatment Note Start: 10/06/23 10:22 Freq: Status: Active Protocol: Document 10/11/23 13:36 MA (Rec: 10/11/23 13:43 MA [id number]) Speech Pathology Treatment Note Session Time Visit Start Time 13:00 Visit Stop Time 13:30 Total Visit Minutes 30 Visit Information Visit Number 3 Plan of Care Dates 09/27/23-12/28/23 Next Note Type Next Note Type Treatment Note General Information Patient History Pt is a 78-year-old male with a history of vocal dysfunction dating back to 2013, specifically hoarseness and vocal fold bowing. Pt began voice therapy in 2013 for dysphonia and throat pain, and ultimately underwent Type I medialization thyroplasty in 2014 and again August 29 2023 at . It is reported that the pt previously took Neurontin 400mg, which helped relieve some throat pain. He also has a history of GERD, including a OWENS test (remote pH monitoring test which uses a capsule in the esophagus to monitor esophageal pH) which did indicate GERD. He reports when he feels like his GERD is acting up he will take omeprazole for about a week and then not have symptoms for a few month and then have to take it again. Around March 2023 he visited an formerly [facility] TANNING WHEEL OPERATOR/ Laryngology clinic for an evaluation due to continued dysphonia increasing over the last year, and scope revealed mild-moderate erythema and bowing of the vocal folds, right greater than left. Glottic closure was observed to be incomplete with a mild anterior gap. Additionally, mild muscle tension was observed bilaterally, with moderate BOT recruitment/ tension. Treatment probes during the scope indicated decreased strain with forward focus/coordination, which is consistent with results of previous voice therapy in 2013 in which he exhibited near normal voice quality using good breath support, increased orality, and resonant voice techniques. Of note, pt's records from TANNING WHEEL OPERATOR andrew at [facility] indicate the pt has previous demonstrated improvements with PhoRTE approach. For this most recent surgery, pt chose not to pursue therapy with [facility] and rather to pursue voice therapy more locally. Therefore, he presents to this clinic today for an evaluation of voice with complaints of hoarseness/ breathiness, decreased loudness. He reports his voice sounds worse after surgery. He does not report symptoms of dysphagia. Subjective Observations/Patient Presentation Pt arrived to therapy on time. He brought in most recent and past voice exercises. He reports continued SOB from pulmonary embolism about 2 weeks ago. He states he is taking eloquis. He reports he has been attempting his voice exercises but has been having trouble d/t SOB. ST encouraged Pt to only do what's comfortable, cut him exercises in half and stop if it becomes uncomfortable, and seek medical attention if SOB becomes worse. Objective Distance Learning Program Coordinator Goals LTG 1: Pt will decrease score on Voice Handicap Index by at least 16 points (from 78 to 60 ) to decrease perceived severity of vocal impairment from Severe to Moderate. LTG 2: Pt will demonstrate accurate recall and completion of breath support and vocal exercise techniques with 80% accuracy independently following instruction from TANNING WHEEL OPERATOR . LTG 3: Pt will increase maximum phonation time to an average of at least 15 seconds at an average of at least 65dB. Treatment Activities Instruction in diaphragmatic breathing, semi occluded vocal tract, resonance exercises Assessment Assessment of Improvement Pt brought in voice exercises taught during previous round of speech therapy, prior to most recent vocal fold surgery . Pt demonstrated diaphragmatic breathing exercises with about 100% accuracy with use of visual cues to expand belly when inhaling. Pt completed semi occluded vocal tract (SOVT) exercises with about 100% accuracy requiring mild cues, specifically sustained phonation, pitch glides, single pitch pulses. He also completed resonance voice exercises at the sentence level. He states this has been the biggest game changer for him, in regards to sounding clearing d/t him stating he has always talked from his throat. He completed resonance sentences with 100% accuracy. He sustained phonation for about 11 seconds . Pt reports he has throat clearing and coughing fits a lot throughout the day, especiallly in the morning. ST educated Pt on reflux precautions. Pt reports he sleeps with his head raised and also avoids spicy foods. ST suggested he keepe a food journal for when his reflux is really bad, however Pt reports he used to do that and stopped because it got boring . ST encouraged Pt to continue with HEP with the addition of diaphragmatic breathing exercises, SOVT exercises and resonsance voice exercsies. Pt verbalized understanding. ST recommended Pt not complete exercises if he is SOB or is having pain/discomfort. Plan Provided Patient/Caregiver Instruction Home Exercise Program,Plan of Care,Questions/Concerns
--- NOTE | 2023-11-08 09:35 | ST.OPTN ---
Visit Care Team Role Provider Type Ganga Joseph MD Family Provider Physician Primary Care Provider Address: [address] [place] [address], [id number] Amanda Fowler MD Attending Provider Non-Staff Referring Provider Address: [address] [facility], [id number], [place], [address] FORKLIFT MECHANIC Treatment Note FORKLIFT MECHANIC Treatment Note Start: 10/06/23 10:22 Freq: Status: Active Protocol: Document 11/08/23 09:31 MA (Rec: 11/08/23 09:35 MA [id number]) Speech Pathology Treatment Note Session Time Visit Start Time 09:00 Visit Stop Time 09:30 Total Visit Minutes 30 Visit Information Visit Number 4 Plan of Care Dates 09/27/23-12/28/23 Next Note Type Next Note Type Treatment Note General Information Patient History Pt is a 78-year-old male with a history of vocal dysfunction dating back to 2013, specifically hoarseness and vocal fold bowing. Pt began voice therapy in 2013 for dysphonia and throat pain, and ultimately underwent Type I medialization thyroplasty in 2014 and again August 29 2023 at . It is reported that the pt previously took Neurontin 400mg, which helped relieve some throat pain. He also has a history of GERD, including a OWENS test (remote pH monitoring test which uses a capsule in the esophagus to monitor esophageal pH) which did indicate GERD. He reports when he feels like his GERD is acting up he will take omeprazole for about a week and then not have symptoms for a few month and then have to take it again. Around March 2023 he visited an [facility] FORKLIFT MECHANIC/ Laryngology clinic for an evaluation due to continued dysphonia increasing over the last year, and scope revealed mild-moderate erythema and bowing of the vocal folds, right greater than left. Glottic closure was observed to be incomplete with a mild anterior gap. Additionally, mild muscle tension was observed bilaterally, with moderate BOT recruitment/ tension. Treatment probes during the scope indicated decreased strain with forward focus/coordination, which is consistent with results of previous voice therapy in 2013 in which he exhibited near normal voice quality using good breath support, increased orality, and resonant voice techniques. Of note, pt's records from FORKLIFT MECHANIC andrew at [facility] indicate the pt has previous demonstrated improvements with PhoRTE approach. For this most recent surgery, pt chose not to pursue therapy with and rather to pursue voice therapy more locally. Therefore, he presents to this clinic today for an evaluation of voice with complaints of hoarseness/ breathiness, decreased loudness. He reports his voice sounds worse after surgery. He does not report symptoms of dysphagia. Subjective Observations/Patient Presentation Pt arrived to therapy on time. He brought in most recent and past voice exercises. He reports continued SOB. He states he is taking eloquis. He reports he has been attempting his voice exercises but has been having trouble d /t SOB and doing them every other day. ST encouraged Pt to only do what's comfortable, cut him exercises in half and stop if it becomes uncomfortable, and seek medical attention if SOB becomes worse. Objective Field Gauger Goals LTG 1: Pt will decrease score on Voice Handicap Index by at least 16 points (from 78 to 60 ) to decrease perceived severity of vocal impairment from Severe to Moderate. LTG 2: Pt will demonstrate accurate recall and completion of breath support and vocal exercise techniques with 80% accuracy independently following instruction from FORKLIFT MECHANIC . LTG 3: Pt will increase maximum phonation time to an average of at least 15 seconds at an average of at least 65dB. Treatment Activities Instruction in diaphragmatic breathing, semi occluded vocal tract, resonance exercises Assessment Assessment of Improvement Pt brought in voice exercises taught during previous round of speech therapy, prior to most recent vocal fold surgery . Pt demonstrated diaphragmatic breathing exercises with about 100% accuracy with use of visual cues to expand belly when inhaling. Pt completed semi occluded vocal tract (SOVT) exercises with about 100% accuracy requiring mild cues, specifically sustained phonation, pitch glides, single pitch pulses. He also completed resonance voice exercises at the sentence level. He completed resonance sentences with 100% accuracy. Pt reports decreased raspy/ hoarse vocal quality, however states he continues to be upset about how his voice sounds. His voice appears quiet, however clear quality and 100% intellgible. He reports the biggest thing he needs to do it relax. He states when someone calls he will sound raspy d/t tensing his throat. ST encouraged Pt to set reminders in his phone to relax and to try meditation, which he had mentioned he was doing previously. ST provided an additional handout on SOVT. He reports he sees the ENT the end of the month. Pt requested a follow up appointment in a month to see where his voice is at. ST encouraged Pt to continue with HEP with the addition of diaphragmatic breathing exercises, SOVT exercises and resonsance voice exercsies. Pt verbalized understanding. ST recommended Pt not complete exercises if he is SOB or is having pain/discomfort. Plan Provided Patient/Caregiver Instruction Home Exercise Program,Plan of Care,Questions/Concerns
--- NOTE | 2023-12-21 14:59 | ST.OPTN ---
Visit Care Team Role Provider Type Ganga Joseph MD Family Provider Physician Primary Care Provider Address: [address] [place] [address], [id number] Amanda Fowler MD Attending Provider Non-Staff Referring Provider Address: [address] [facility], [address], [place], [address] PROJECTION WELDING MACHINE OPERATOR Treatment Note PROJECTION WELDING MACHINE OPERATOR Treatment Note Start: 10/06/23 10:22 Freq: Status: Active Protocol: Document 12/21/23 14:43 MA (Rec: 12/21/23 14:59 MA [id number]) Speech Pathology Treatment Note Session Time Visit Start Time 14:30 Visit Stop Time 14:50 Total Visit Minutes 20 Visit Information Visit Number 5 Plan of Care Dates 09/27/23-12/28/23 Next Note Type Next Note Type Treatment Note General Information Patient History Pt is a 78-year-old male with a history of vocal dysfunction dating back to 2013, specifically hoarseness and vocal fold bowing. Pt began voice therapy in 2013 for dysphonia and throat pain, and ultimately underwent Type I medialization thyroplasty in 2014 and again August 29 2023 at . It is reported that the pt previously took Neurontin 400mg, which helped relieve some throat pain. He also has a history of GERD, including a OWENS test (remote pH monitoring test which uses a capsule in the esophagus to monitor esophageal pH) which did indicate GERD. He reports when he feels like his GERD is acting up he will take omeprazole for about a week and then not have symptoms for a few month and then have to take it again. Around March 2023 he visited an [facility] PROJECTION WELDING MACHINE OPERATOR/ Laryngology clinic for an evaluation due to continued dysphonia increasing over the last year, and scope revealed mild-moderate erythema and bowing of the vocal folds, right greater than left. Glottic closure was observed to be incomplete with a mild anterior gap. Additionally, mild muscle tension was observed bilaterally, with moderate BOT recruitment/ tension. Treatment probes during the scope indicated decreased strain with forward focus/coordination, which is consistent with results of previous voice therapy in 2013 in which he exhibited near normal voice quality using good breath support, increased orality, and resonant voice techniques. Of note, pt's records from PROJECTION WELDING MACHINE OPERATOR andrew at [facility] indicate the pt has previous demonstrated improvements with PhoRTE approach. For this most recent surgery, pt chose not to pursue therapy with and rather to pursue voice therapy more locally. Therefore, he presents to this clinic today for an evaluation of voice with complaints of hoarseness/ breathiness, decreased loudness. He reports his voice sounds worse after surgery. He does not report symptoms of dysphagia. Subjective Observations/Patient Presentation Pt arrived to therapy on time. He brought in most recent and past voice exercises. He reports continued SOB. He states he is taking eloquis. Objective Short Term Goals 1. Pt will demonstrate accurate completion of breath support exercises in order to complete inhalation/exhalation ratio of 8s:16s in 75% of opportunities. - MET 2. Pt will demonstrate accurate completion of resonance shifting exercises with 80% accuracy independently as measured by PROJECTION WELDING MACHINE OPERATOR during 1:1 session.- MET 3. Pt will demonstrate accurate completion of vocal adduction exercises with 80% accuracy independently as measured by PROJECTION WELDING MACHINE OPERATOR during 1:1 session.- MET 4. Pt will benefit from PROJECTION WELDING MACHINE OPERATOR education regarding reflux precautions and vocal hygiene techniques.- MET Toilet Products Molder Goals LTG 1: Pt will decrease score on Voice Handicap Index by at least 16 points (from 78 to 60 ) to decrease perceived severity of vocal impairment from Severe to Moderate.- DID NOT TEST LTG 2: Pt will demonstrate accurate recall and completion of breath support and vocal exercise techniques with 80% accuracy independently following instruction from PROJECTION WELDING MACHINE OPERATOR .- MET LTG 3: Pt will increase maximum phonation time to an average of at least 15 seconds at an average of at least 65dB.- DID NOT TEST d/t Pt SOB Treatment Activities Instruction in diaphragmatic breathing, semi occluded vocal tract, resonance exercises, discharge recommendations Assessment Patient Response to Treatment Excellent Impairments Identified Voice Progress Towards Goals Appropriate for Discharge Assessment of Improvement Pt brought in voice exercises taught during previous round of speech therapy, prior to most recent vocal fold surgery . Pt demonstrated diaphragmatic breathing exercises with about 100% accuracy with use of visual cues to expand belly when inhaling. Pt completed semi occluded vocal tract (SOVT) exercises with about 100% accuracy requiring mild cues, specifically sustained phonation, pitch glides, single pitch pulses. He also completed resonance voice exercises at the sentence level. He completed resonance sentences with 100% accuracy. Pt reports decreased raspy/ hoarse vocal quality, however states he continues to be upset about how his voice sounds. His voice appears quiet, however clear quality and 100% intellgible. He reports the biggest thing he needs to do it relax. He states when someone calls he will sound raspy d/t tensing his throat. ST encouraged Pt to set reminders in his phone to relax and to try meditation, which he had mentioned he was doing previously. ST provided an additional handout on SOVT. He reports he sees the ENT the end of the month. Pt reported he is still not happy with his voice and does not think it is clear or sounds good. He reports when he does his voice exercises he feels better about his voice because he thinks it sounds better and compared it to his meditation practice. He also reports he received new hearing aids, which impacts the way he sounds his voice. ST facilitated conversation with Pt in regards to his voice and accepting how it sounds d/t Pt with clear voice and no hoarness/breathiness and also d/t Pt having gone through surgery to improve his voice and participating in speech therapy several times. Pt verbalized understanding and states he needs to keep doing his exercises and focus on being grateful for the voice he has. He is 100% intelligible. ST recommended Pt be discharged from at this time d/t Pt independent with voice exercises at home. Pt verbalized understanding and reports he will continue to do voice exercises at home. ST encouraged Pt to get a new referral from his doctor if any changes occur and to call with any questions/concerns. ST also recommended Pt not continue voice exercises if SOB occurs. Reviewed with Patient Goals,Progress Being Made,Home Exercise Program Patient/Caregiver Understanding Excellent Plan Amount of Therapy Recommended No Further Therapy Frequency of Treatment No Further Therapy Therapeutic Contents Voice Training Provided Patient/Caregiver Instruction Home Exercise Program,Plan of Care,Questions/Concerns
== END 2024-01-22 10:50 ==
LOC: SP 14:30
PROVIDERS: Family Provider Internal Medicine; PCP Internal Medicine; Referring Provider Otolaryngology Plastic Surgery within the Head & Neck; Visit Provider Otolaryngology Plastic Surgery within the Head & Neck
DX: R49.0 Dysphonia (principal)
CPT/HCPCS: 92507; 92523

== ENCOUNTER → 2023-12-26 09:12 | Outpatient (CLI) | payer MEDICARE, OTHER, SELFPAY ==
[2023-09-30 15:29] VITALS: BMI 24.7
--- NOTE | 2023-12-26 09:14 | DI.RAD.S_ITS ---
PROCEDURE: XR FINGER RT MIN 2V INDICATIONS: middle finger PIP swelling/pain, no trauma TECHNIQUE: AP hand, 2 views of the 3rd finger(s) acquired. COMPARISON: None. FINDINGS: Bones: No fractures or dislocations. No suspicious bony lesions. Soft tissues: No suspicious soft tissue calcifications. IMPRESSION: No acute bony abnormality. Dictated by: Ricky Donaldson M.D. on 12/26/2023 at 10:31 Approved by: Ricky Donaldson M.D. on 12/26/2023 at 10:33
== END ==
PROVIDERS: Family Provider Internal Medicine; PCP Internal Medicine; Referring Provider Internal Medicine; Visit Provider Internal Medicine
DX: M19.049 Primary osteoarthritis, unspecified hand (principal)
CPT/HCPCS: 73140

== ENCOUNTER → 2024-03-12 10:29 | Outpatient (CLI) | payer MEDICARE, OTHER, SELFPAY ==
[2023-09-30 15:29] VITALS: BMI 24.7
[2024-01-17 12:04] VITALS: BMI 24.7
--- NOTE | 2024-03-12 10:32 | DI.CT.S_ITS ---
PROCEDURE: CT ANGIO CHEST PE PROTOCOL INDICATIONS: followup PE TECHNIQUE: After the administration of intravenous contrast, 2 mm thick sections acquired from the pulmonary apices to the posterior costophrenic angles. 3-dimensional maximum intensity projection (MIP) coronal and sagittal reformats were then acquired through the thorax. For radiation dose reduction, the following was used: automated exposure control, adjustment of mA and/or kV according to patient size. COMPARISON: [facility], CT, CT ANGIO CHEST PE PROTOCOL, 09/30/2023, 12:40. FINDINGS: Image quality: Diagnostic. Pulmonary arteries: Pulmonary arteries are normal in size, and demonstrate no intraluminal filling defects to suggest central pulmonary embolism. Lower Neck: No enlarged lymph nodes. Thyroid: There is unchanged enlargement of the left thyroid lobe. Axillae: No enlarged lymph nodes. Chest Wall: Unremarkable. Bones: Unremarkable. Lungs and Pleura: No pneumothorax or pleural effusions. No consolidation or suspicious nodules. Heart: Heart size is normal. No pericardial effusion. Thoracic Vessels: No aortic aneurysm. Mediastinum and Nataly: No enlarged lymph nodes. Esophagus: No wall thickening. No hiatal hernia. Upper Abdomen: Visualized upper abdomen solid organs and bowel loops appear normal. IMPRESSION: No pulmonary embolus. No acute cardiopulmonary process. Dictated by: Anna Hawkins M.D. on 03/12/2024 at 12:02 Approved by: Anna Hawkins M.D. on 03/12/2024 at 12:05
[2024-03-12 10:58] LABS: BUN Creatinine Ratio 27.4 (6-22); Blood Urea Nitrogen 23 mg/dL (9-20); Calcium 9.7 mg/dL (8.4-10.2); Carbon Dioxide 26 mmol/L (22-32); Chloride 104 mmol/L (98-107); Cholesterol 131 mg/dL (140-199); Estimated Glomerular Filt Rate > 60 mL/min (>60); Glucose 231 mg/dL (80-110); HDL Cholesterol 48 mg/dL (40-60); HEMOLYSIS < 15 (0-50); LDL Cholesterol Calculated 58 mg/dL (<100); Potassium 4.1 mmol/L (3.4-5.1); Sodium 138 mmol/L (137-145); Triglycerides 123 mg/dL (35-150)
[2024-03-12 11:05] LABS: Hemoglobin A1C% w Est Avg Glu 6.4 % (4.0-6.0)
[2024-03-12 11:29] LABS: Prostate Specific Antigen 4.78 ng/mL (0.10-4.00)
[2024-03-12 17:05] LABS: Creatinine Urine Random 68.16 mg/dL
[2024-03-12 17:13] LABS: Microalbumin Urine Random < 0.6 mg/dL (0-1.6)
== END ==
LOC: CT 10:31
PROVIDERS: Family Provider Internal Medicine; PCP Internal Medicine; Referring Provider Internal Medicine; Visit Provider Internal Medicine
DX: E11.59 Type 2 diabetes mellitus with other circulatory complications (principal); R97.20 Elevated prostate specific antigen [PSA]; I26.99 Other pulmonary embolism without acute cor pulmonale; E78.2 Mixed hyperlipidemia
CPT/HCPCS: 36415; 71275; 80048; 80061; 82043; 82570; 83036; 84153; Q9967

== ENCOUNTER → 2024-06-19 11:34 | Outpatient (CLI) | payer MEDICARE, OTHER, SELFPAY ==
[2024-01-17 12:04] VITALS: BMI 24.7
[2024-06-19 12:40] LABS: BUN Creatinine Ratio 22.4 (6-22); Blood Urea Nitrogen 19 mg/dL (9-20); Calcium 9.7 mg/dL (8.4-10.2); Carbon Dioxide 28 mmol/L (22-32); Chloride 104 mmol/L (98-107); Estimated Glomerular Filt Rate > 60 mL/min (>60); Glucose 205 mg/dL (80-110); HEMOLYSIS 17 (0-50); Potassium 4.3 mmol/L (3.4-5.1); Sodium 139 mmol/L (137-145)
== END ==
PROVIDERS: Family Provider Internal Medicine; PCP Internal Medicine; Referring Provider Internal Medicine Cardiovascular Disease; Visit Provider Internal Medicine Cardiovascular Disease
DX: I10 Essential (primary) hypertension (principal)
CPT/HCPCS: 36415; 80048

== ENCOUNTER → 2024-07-04 17:06 | Outpatient (CLI) | payer MEDICARE, OTHER, SELFPAY ==
[2024-01-17 12:04] VITALS: BMI 24.7
--- NOTE | 2024-07-04 17:07 | DI.RAD.S_ITS ---
PROCEDURE: XR CHEST 2V INDICATIONS: COUGH TECHNIQUE: 2 views of the chest were acquired. COMPARISON: [facility], CR, XR CHEST 1V, 09/30/2023, 11:58. FINDINGS: Surgical changes and devices: None. Lungs and pleura: Lungs are clear. No pleural effusions or pneumothorax. Mediastinum: Mediastinal contours are normal. Heart size is normal. Bones and chest wall: No suspicious bony abnormalities. Soft tissues appear unremarkable. IMPRESSION: No acute cardiopulmonary pathology. Dictated by: Ziggy Xie M.D. on 07/05/2024 at 12:13 Approved by: Ziggy Xie M.D. on 07/05/2024 at 12:13
== END ==
LOC: RAD 17:07
PROVIDERS: Family Provider Internal Medicine; PCP Internal Medicine; Referring Provider Internal Medicine; Visit Provider Internal Medicine
DX: R05.9 Cough, unspecified (principal)
CPT/HCPCS: 71046

== ENCOUNTER → 2024-10-17 12:38 | Outpatient (CLI) | payer MEDICARE, OTHER, SELFPAY ==
[2024-01-17 12:04] VITALS: BMI 24.7
[2024-10-17 13:16] LABS: Hemoglobin A1C% w Est Avg Glu 5.9 % (4.0-6.0)
[2024-10-17 13:25] LABS: D Dimer 485 ng/ml (<500)
[2024-10-17 13:30] LABS: BUN Creatinine Ratio 23.8 (6-22); Blood Urea Nitrogen 20 mg/dL (9-20); Calcium 9.5 mg/dL (8.4-10.2); Carbon Dioxide 28 mmol/L (22-32); Chloride 104 mmol/L (98-107); Cholesterol 141 mg/dL (140-199); Estimated Glomerular Filt Rate > 60 mL/min (>60); Glucose 203 mg/dL (80-110); HDL Cholesterol 60 mg/dL (40-60); HEMOLYSIS < 15 (0-50); LDL Cholesterol Calculated 62 mg/dL (<100); Potassium 4.5 mmol/L (3.4-5.1); Sodium 140 mmol/L (137-145); Triglycerides 94 mg/dL (35-150)
[2024-10-17 13:57] LABS: Prostate Specific Antigen 5.68 ng/mL (0.10-4.00)
[2024-10-17 14:37] LABS: Creatinine Urine Random 102.58 mg/dL
[2024-10-17 14:43] LABS: Microalbumin Urine Random 2.6 mg/dL (0-1.6)
== END ==
PROVIDERS: Family Provider Internal Medicine; PCP Internal Medicine; Referring Provider Internal Medicine; Visit Provider Internal Medicine
DX: E11.59 Type 2 diabetes mellitus with other circulatory complications (principal); R97.20 Elevated prostate specific antigen [PSA]; E78.2 Mixed hyperlipidemia; I26.99 Other pulmonary embolism without acute cor pulmonale
CPT/HCPCS: 36415; 80048; 80061; 82043; 82570; 83036; 84153; 85379

== ENCOUNTER → 2024-10-24 10:46 | Outpatient (CLI) | payer MEDICARE, OTHER, SELFPAY ==
[2024-01-17 12:04] VITALS: BMI 24.7
--- NOTE | 2024-10-24 10:47 | DI.US.S_ITS ---
PROCEDURE: US CAROTID DOPPLER BI INDICATIONS: carotid disease TECHNIQUE: Color and pulse Doppler interrogation was performed of both carotid systems, with image documentation and velocity measurements. COMPARISON: None. FINDINGS: Stenosis calculations are based on SRU (Society of Radiologists in Ultrasound) criteria. Right side: Brachial blood pressure: 146/66 mm Hg. Common carotid artery peak systolic velocity: 89 cm/sec. Internal carotid artery peak systolic velocity: 128 cm/sec. Internal carotid artery end diastolic velocity: 37 cm/sec. External carotid artery peak systolic velocity: 170 cm/sec. ICA/CCA peak systolic ratio: 1.4. Lane scale imaging description: Calcified plaques are noted in right carotid bifurcation and proximal right internal carotid artery. Percent internal carotid artery stenosis: Less than 50%. Vertebral artery: Flow direction is antegrade. Left side: Brachial blood pressure: 146/66 mm Hg. Common carotid artery peak systolic velocity: 87 cm/sec. Internal carotid artery peak systolic velocity: 139 cm/sec. Internal carotid artery end diastolic velocity: 30 cm/sec. External carotid artery peak systolic velocity: 130 cm/sec. ICA/CCA peak systolic ratio: 1.6. Lane scale imaging description: Mild atherosclerotic plaques are seen in left carotid bifurcation and origin of left internal carotid artery. Percent internal carotid artery stenosis: Less than 50%. Vertebral artery: Flow direction is antegrade. IMPRESSION: 1. In the right carotid artery, there is less than 50% stenosis based on peak systolic velocity criteria. 2. In the left carotid artery, there is less than 50% stenosis based on peak systolic velocity criteria. 3. Antegrade vertebral arteries. Dictated by: Ziggy Xie M.D. on 10/25/2024 at 10:51 Approved by: Ziggy Xie M.D. on 10/25/2024 at 10:58
== END ==
PROVIDERS: Family Provider Internal Medicine; PCP Internal Medicine; Referring Provider Internal Medicine; Visit Provider Internal Medicine
DX: I65.23 Occlusion and stenosis of bilateral carotid arteries (principal)
CPT/HCPCS: 93880

== ENCOUNTER → 2024-12-05 10:06 | Outpatient (CLI) | payer MEDICARE, OTHER, SELFPAY ==
[2024-01-17 12:04] VITALS: BMI 24.7
== END ==
PROVIDERS: Family Provider Internal Medicine; PCP Internal Medicine; Visit Provider Nurse Practitioner Family
DX: R05.1 Acute cough (principal); J02.9 Acute pharyngitis, unspecified
CPT/HCPCS: 87070; 87880

== ENCOUNTER → 2024-12-10 15:28 | Outpatient (CLI) | payer MEDICARE, OTHER, SELFPAY ==
[2024-01-17 12:04] VITALS: BMI 24.7
--- NOTE | 2024-12-10 15:30 | DI.RAD.S_ITS ---
PROCEDURE: XR CHEST 2V INDICATIONS: cough/congestion x 3 weeks, just returned from [place] TECHNIQUE: 2 views of the chest were acquired. COMPARISON: [facility], CR, XR CHEST 2V, 07/04/2024, 17:08. [facility], CR, XR CHEST 1V, 09/30/2023, 11:58. FINDINGS: Surgical changes and devices: None. Lungs and pleura: Lungs are clear. No pleural effusions or pneumothorax. Mediastinum: Mediastinal contours are normal. Heart size is normal. Bones and chest wall: No suspicious bony abnormalities. Soft tissues appear unremarkable. IMPRESSION: No acute cardiopulmonary abnormality is seen. Dictated by: Ricky Donaldson M.D. on 12/10/2024 at 16:05 Approved by: Ricky Donaldson M.D. on 12/10/2024 at 16:05
== END ==
PROVIDERS: Family Provider Internal Medicine; PCP Internal Medicine; Referring Provider Internal Medicine; Visit Provider Internal Medicine
DX: J06.9 Acute upper respiratory infection, unspecified (principal)
CPT/HCPCS: 71046

== ENCOUNTER → 2025-03-19 13:28 | Outpatient (CLI) | payer MEDICARE, OTHER, SELFPAY ==
[2024-01-17 12:04] VITALS: BMI 24.7
[2025-03-19 14:58] LABS: Carbon Dioxide 26 mmol/L (22-32); Chloride 103 mmol/L (98-107); HEMOLYSIS < 15 (0-50); Potassium 4.3 mmol/L (3.4-5.1); Sodium 139 mmol/L (137-145)
== END ==
PROVIDERS: Family Provider Internal Medicine; PCP Internal Medicine; Referring Provider Internal Medicine Cardiovascular Disease; Visit Provider Internal Medicine Cardiovascular Disease
DX: E87.5 Hyperkalemia (principal); I10 Essential (primary) hypertension
CPT/HCPCS: 36415; 80051

== ENCOUNTER → 2025-03-26 11:20 | Outpatient (CLI) | payer MEDICARE, OTHER, SELFPAY ==
[2024-01-17 12:04] VITALS: BMI 24.7
[2025-03-26 12:31] LABS: Blood Urea Nitrogen 21 mg/dL (9-20); Calcium 9.3 mg/dL (8.4-10.2); Carbon Dioxide 26 mmol/L (22-32); Chloride 105 mmol/L (98-107); Estimated Glomerular Filt Rate > 60 mL/min (>60); Glucose 196 mg/dL (70-99); HEMOLYSIS < 15 (0-50); Potassium 4.1 mmol/L (3.4-5.1); Sodium 140 mmol/L (137-145)
== END ==
PROVIDERS: Family Provider Internal Medicine; PCP Internal Medicine; Referring Provider Internal Medicine Cardiovascular Disease; Visit Provider Internal Medicine Cardiovascular Disease
DX: I10 Essential (primary) hypertension (principal)
CPT/HCPCS: 36415; 80048

== ENCOUNTER → 2025-04-28 15:48 | Outpatient (CLI) | payer MEDICARE, OTHER, SELFPAY ==
[2024-01-17 12:04] VITALS: BMI 24.7
[2025-04-28 17:35] LABS: Hematocrit 41.5 % (41-53); Hemoglobin 14.3 g/dL (13.5-17.5); Mean Corpuscular HGB Conc 34.3 % (30-36); Mean Corpuscular Hemoglobin 32.3 PG (26-34); Mean Corpuscular Volume 94.1 fL (80-100); Platelet Count 112 X10^3/uL (150-400)
[2025-04-28 17:44] LABS: Hemoglobin A1C% w Est Avg Glu 6.6 % (4.0-6.0)
[2025-04-28 18:02] LABS: Alanine Aminotransferase 23 IU/L (<50); Albumin 4.5 g/dL (3.5-5.0); Albumin Globulin Ratio 1.5 (1.0-2.8); Alkaline Phosphatase 84 U/L (38-126); Blood Urea Nitrogen 17 mg/dL (9-20); Calcium 9.6 mg/dL (8.4-10.2); Carbon Dioxide 28 mmol/L (22-32); Chloride 103 mmol/L (98-107); Estimated Glomerular Filt Rate > 60 mL/min (>60); Globulin 3.0 g/dL (1.7-4.1); Glucose 148 mg/dL (70-99); HEMOLYSIS < 15 (0-50); Potassium 4.4 mmol/L (3.4-5.1); Sodium 140 mmol/L (137-145); Total Protein 7.5 g/dL (6.3-8.2)
[2025-04-28 18:31] LABS: TSH w/ Reflex to FT4 1.20 uIU/mL (0.47-4.68)
== END ==
PROVIDERS: Family Provider Internal Medicine; PCP Internal Medicine; Referring Provider Internal Medicine; Visit Provider Internal Medicine
DX: I25.10 Atherosclerotic heart disease of native coronary artery without angina pectoris (principal); E11.59 Type 2 diabetes mellitus with other circulatory complications
CPT/HCPCS: 36415; 80053; 83036; 84443; 85027